=== PATIENT | female | born 1945 | race African-American/Black ===

== ENCOUNTER 2016-11-10 16:18 | Inpatient (IN) | payer MEDICARE, OTHER ==
--- NOTE | 2016-11-10 16:43 | ER Document Report ---
ED Medical Screen (RME) - General Stated Complaint: SHORTNESS OF BREATH Mode of Arrival: Wheelchair Information source: Patient Notes: Patient complains of shortness of breath that started this morning. Patient denies any chest pain. Patient reports nausea, but denies any vomiting. hx: thyroid, HTN, OA I have greeted and performed a rapid initial assessment of this patient. A comprehensive ED assessment and evaluation of the patient, analysis of test results and completion of the medical decision making process will be conducted by additional ED providers. TRAVEL OUTSIDE OF THE [place] IN LAST 30 DAYS: No - Related Data Allergies/Adverse Reactions: Sulfa (Sulfonamide Antibiotics) Allergy (Verified 11/10/16 16:38) Hives Past Medical History - Past Medical History Cardiac Medical History: Reports: Hx Hypercholesterolemia, Hx Hypertension Denies: Hx Coronary Artery Disease, Hx Heart Attack Pulmonary Medical History: Denies: Hx Asthma, Hx Bronchitis, Hx COPD, Hx Pneumonia Neurological Medical History: Denies: Hx Cerebrovascular Accident, Hx Seizures Endocrine Medical History: Reports: Hx Hypothyroidism GI Medical History: Reports: Hx Gastroesophageal Reflux Disease, Hx Ulcer - YEARS AGO STOMACH. Denies: Hx Hepatitis, Hx Hiatal Hernia Musculoskeltal Medical History: Denies Hx Arthritis Infectious Medical History: Denies: Hx Hepatitis Past Surgical History: Reports: Hx Breast Surgery - cyst on R breast removed, Hx Hysterectomy, Hx Mastectomy - RIGHT BREAST 2014, AVOID RIGHT ARM, Hx Orthopedic Surgery - carpel tunnel, rotator cuff repair R side, Hx Thyroid Surgery - removal. Denies: Hx Open Heart Surgery, Hx Pacemaker - Immunizations Hx Diphtheria, Pertussis, Tetanus Vaccination: - UNSURE Physical Exam - Cardiovascular Rhythm: Tachycardia Heart sounds: S1 appreciated, S2 appreciated
[2016-11-10 17:32] LABS: ABSOLUTE LYMPHOCYTES (AUTO) 1.1 10^3/uL (0.5-4.7); ABSOLUTE MONOCYTES (AUTO) 0.7 10^3/uL (0.1-1.4); ABSOLUTE NEUT (AUTO) 7.5 10^3/uL (1.7-8.2); BASOPHILS % (AUTO) 0.3 % (0-2); EOSINOPHILS % (AUTO) 0.2 % (0-6); HEMATOCRIT 35.2 % (36.0-47.0); HEMOGLOBIN 11.8 g/dL (12.0-15.5); HGB HCT DIFFERENCE 0.2; LYMPHOCYTES % (AUTO) 11.5 % (13-45); MEAN CORPUSCULAR HEMOGLOBIN 29.2 pg (27.0-33.4); MEAN CORPUSCULAR HGB CONC 33.5 g/dL (32.0-36.0); MEAN CORPUSCULAR VOLUME 87 fl (80-97); MONOCYTES % (AUTO) 7.8 % (3-13); RED BLOOD COUNT 4.04 10^6/uL (3.72-5.28); RED CELL DISTRIBUTION WIDTH 15.4 % (11.5-14.0); SEGMENTED NEUTROPHILS % (AUTO) 80.2 % (42-78); WHITE BLOOD COUNT 9.4 10^3/uL (4.0-10.5)
[2016-11-10 17:50] LABS: ALANINE AMINOTRANSFERASE 26 U/L (9-52); ALBUMIN 4.1 g/dL (3.5-5.0); ALKALINE PHOSPHATASE 111 U/L (38-126); ANION GAP 11 (5-19); ASPARTATE AMINO TRANSFERASE 20 U/L (14-36); BILIRUBIN,TOTAL 0.8 mg/dL (0.2-1.3); BLOOD UREA NITROGEN 12 mg/dL (7-20); CALCIUM 9.5 mg/dL (8.4-10.2); CARBON DIOXIDE 26 mmol/L (22-30); CHLORIDE 104 mmol/L (98-107); CREATINE KINASE 172 U/L (30-135); CREATININE RESULT 0.81 mg/dL (0.52-1.25); GLUCOSE 112 mg/dL (75-110); MAGNESIUM 1.8 mg/dL (1.6-2.3); POTASSIUM 3.8 mmol/L (3.6-5.0); SODIUM 140.5 mmol/L (137-145); TOTAL PROTEIN 7.4 g/dL (6.3-8.2)
[2016-11-10 18:01] LABS: CREATINE KINASE MB 1.75 ng/mL (<4.55)
[2016-11-10 18:03] LABS: TROPONIN I 0.142 ng/mL
--- NOTE | 2016-11-10 18:20 | ER Document Report ---
ED General - General Chief Complaint: Shortness Of Breath Stated Complaint: SHORTNESS OF BREATH Mode of Arrival: Wheelchair Information source: Patient Notes: 71-year-old female history of breast cancer presents with complaints of sudden shortness of breath that started this morning. Patient notes she cannot take a few steps without being short of breath, last had chemotherapy 2 years ago Patient denies any history of pulmonary emboli TRAVEL OUTSIDE OF THE [place] IN LAST 30 DAYS: No - HPI Onset: This morning Onset/Duration: Sudden Quality of pain: Achy Severity: Moderate Pain Level: 1 Associated symptoms: Shortness of breath Exacerbated by: Walking Relieved by: Denies Similar symptoms previously: No Recently seen / treated by doctor: No - Related Data Allergies/Adverse Reactions: Sulfa (Sulfonamide Antibiotics) Allergy (Verified 11/10/16 16:38) Hives Past Medical History - General Information source: Patient - Social History Smoking Status: Former Smoker Cigarette use (# per day): No Chew tobacco use (# tins/day): No Smoking Education Provided: No Frequency of alcohol use: None Drug Abuse: None Family History: Reviewed & Not Pertinent Patient has suicidal ideation: No Patient has homicidal ideation: No - Past Medical History Cardiac Medical History: Reports: Hx Hypercholesterolemia, Hx Hypertension Denies: Hx Coronary Artery Disease, Hx Heart Attack Pulmonary Medical History: Denies: Hx Asthma, Hx Bronchitis, Hx COPD, Hx Pneumonia Neurological Medical History: Denies: Hx Cerebrovascular Accident, Hx Seizures Endocrine Medical History: Reports: Hx Hypothyroidism Renal/ Medical History: Denies: Hx Peritoneal Dialysis GI Medical History: Reports: Hx Gastroesophageal Reflux Disease, Hx Ulcer - YEARS AGO STOMACH. Denies: Hx Hepatitis, Hx Hiatal Hernia Musculoskeltal Medical History: Reports Hx Arthritis Infectious Medical History: Denies: Hx Hepatitis Past Surgical History: Reports: Hx Breast Surgery - cyst on R breast removed, Hx Hysterectomy, Hx Mastectomy - RIGHT BREAST 2014, AVOID RIGHT ARM, Hx Orthopedic Surgery - carpel tunnel, rotator cuff repair R side, Hx Thyroid Surgery - removal. Denies: Hx Open Heart Surgery, Hx Pacemaker - Immunizations Hx Diphtheria, Pertussis, Tetanus Vaccination: - UNSURE Review of Systems - Review of Systems Notes: REVIEW OF SYSTEMS: CONSTITUTIONAL : Denies fever, chills, or sweats. Denies recent illness. EENT: Denies eye, ear, throat, or mouth pain or symptoms. Denies nasal or sinus congestion or discharge. Denies throat, tongue, or mouth swelling or difficulty swallowing. CARDIOVASCULAR: Denies chest pain. Denies palpitations or racing or irregular heart beat. Denies ankle edema. RESPIRATORY: shortness breath difficult to breathing GASTROINTESTINAL: Denies abdominal pain or distention. Denies nausea, vomiting , or diarrhea. Denies blood in vomitus, stools, or per rectum. Denies black, tarry stools. Denies constipation. GENITOURINARY: Denies difficulty urinating, painful urination, burning, frequency, blood in urine, or discharge. FEMALE GENITOURINARY: Denies vaginal bleeding, heavy or abnormal periods, irregular periods. Denies vaginal discharge or odor. MUSCULOSKELETAL: Denies back or neck pain or stiffness. Denies joint pain or swelling. SKIN: Denies rash, lesions or sores. HEMATOLOGIC : Denies easy bruising or bleeding. LYMPHATIC: Denies swollen, enlarged glands. NEUROLOGICAL: Denies confusion or altered mental status. Denies passing out or loss of consciousness. Denies dizziness or lightheadedness. Denies headache. Denies weakness or paralysis or loss of use of either side. Denies problems with gait or speech. Denies sensory loss, numbness, or tingling. Denies seizures. PSYCHIATRIC: Denies anxiety or stress. Denies depression, suicidal ideation, or homicidal ideation. ALL OTHER SYSTEMS REVIEWED AND NEGATIVE. Dictation was performed using [employer] recognition software PHYSICAL EXAMINATION: GENERAL: Well-appearing, well-nourished and in no acute distress. HEAD: Atraumatic, normocephalic. EYES: Pupils equal round and reactive to light, extraocular movements intact, conjunctiva are normal. ENT: Nares patent, oropharynx clear without exudates. Moist mucous membranes. NECK: Normal range of motion, supple without lymphadenopathy LUNGS: Breath sounds clear to auscultation bilaterally and equal. No wheezes rales or rhonchi. HEART: Tachycardic ABDOMEN: Soft, nontender, nondistended abdomen. No guarding, no rebound. No masses appreciated. Female : deferred Musculoskeletal: Normal range of motion, no pitting or edema. No cyanosis. NEUROLOGICAL: Cranial nerves grossly intact. Normal speech, normal gait. Normal sensory, motor exams PSYCH: Normal mood, normal affect. SKIN: Warm, Dry, normal turgor, no rashes or lesions noted. Physical Exam - Vital signs Vitals: Temp Pulse Resp BP Pulse Ox 98.8 F 132 H 22 H 127/81 H 94 11/10/16 16:41 11/10/16 16:41 11/10/16 16:41 11/10/16 16:41 11/10/16 16:41 Course - Re-evaluation Re-evalutation: 11/10/16 18:20 Patient is noted to be tachycardic hypoxic, I have very high suspicion for pulmonary emboli. CTA is pending 11/10/16 21:19 Patient is positive for pulmonary emboli heparin protocol started 11/10/16 21:57 - Vital Signs Vital signs: Temp Pulse Resp BP Pulse Ox 99.5 F 132 H 24 H 154/129 H 94 11/10/16 21:00 11/10/16 16:41 11/10/16 21:20 11/10/16 21:20 11/10/16 21:20 - Laboratory Result Diagrams: 11/10/16 17:10 11/10/16 17:10 Laboratory results interpreted by me: 11/10/16 11/10/16 11/10/16 17:10 17:10 17:10 Hgb 11.8 L Hct 35.2 L RDW 15.4 H Seg Neutrophils % 80.2 H Lymphocytes % 11.5 L Glucose 112 H Creatine Kinase 172 H TSH 0.24 L Urine Protein Urine Blood Ur Leukocyte Esterase 11/10/16 18:00 Hgb Hct RDW Seg Neutrophils % Lymphocytes % Glucose Creatine Kinase TSH Urine Protein 100 H Urine Blood SMALL H Ur Leukocyte Esterase LARGE H Critical Care Note - Critical Care Note Total time excluding time spent on procedures (mins): 32 Comments: 32 minutes of critical care time spent in direct contact evaluating and reevaluating the patient, treating symptoms, reviewing labs and studies and speaking with family and consultants excluding any procedures Discharge - Discharge Clinical Impression: Shortness of breath, Tachycardia Pulmonary emboli Qualifiers: Pulmonary embolism type: other Chronicity: acute Acute cor pulmonale presence: without acute cor pulmonale Qualified Code(s): I26.99 - Other pulmonary embolism without acute cor pulmonale Condition: Serious Disposition: ADMITTED INPATIENT Admitting Provider: Hospitalist Unit Admitted: Telemetry
--- NOTE | 2016-11-10 18:30 | EKG REPORT ---
SEVERITY:- ABNORMAL ECG - SINUS TACHYCARDIA BORDERLINE R WAVE PROGRESSION, ANTERIOR LEADS BORDERLINE T ABNORMALITIES, DIFFUSE LEADS : Confirmed by: Meliza Elizabeth 10-Nov-2016 18:29:52
[2016-11-10 18:46] LABS: APPEARANCE,URINE SLIGHTLY-CLOUDY; BILIRUBIN,URINE NEGATIVE (NEGATIVE); GLUCOSE, URINE NEGATIVE (NEGATIVE); KETONES,URINE NEGATIVE (NEGATIVE); LEUKOCYTE ESTERASE,URINE LARGE (NEGATIVE); NITRITE,URINE NEGATIVE (NEGATIVE); PROTEIN,URINE 100 mg/dL (NEGATIVE); URINE SPECIFIC GRAVITY 1.011; UROBILINOGEN,URINE NEGATIVE mg/dL (<2.0)
[2016-11-10] MEDS ORDERED: HEPARIN SODIUM,PORCINE/D5W 250 ML IV PRN (21:17)
[2016-11-10] MEDS ORDERED: HEPARIN SOD (PORCINE) 1,000 UNIT/ML 10 ML VIAL IV ONE (21:17)
[2016-11-10] MEDS ORDERED: HEPARIN SOD (PORCINE) 1,000 UNIT/ML 10 ML VIAL IV PRN (21:17)
[2016-11-10] MEDS ORDERED: ACETAMINOPHEN 325 MG TABLET PO PRN (22:00)
[2016-11-10] MEDS ORDERED: IPRATROPIUM/ALBUTEROL 0.5-2.5 MG/3 ML AMPUL NEB PRN (22:00)
[2016-11-10] MEDS ORDERED: ONDANSETRON HCL INJ/PF 4 MG/2 ML SDV IV PRN (22:00)
[2016-11-10] MEDS ORDERED: MAGNESIUM HYDROXIDE SUSP 30 ML UDCUP PO PRN (22:00)
[2016-11-10] MEDS ORDERED: NORMAL SALINE 1000 ML 1,000 ML IV ONE (22:06)
[2016-11-10 22:24] LABS: PROTHROMBIN TIME 13.9 SEC (11.4-15.4)
[2016-11-10] MEDS ORDERED: BESIFLOXACIN HCL 0.6% OPH SUSP 5 ML BOTTLE OP PRN (23:31)
[2016-11-10] MEDS ORDERED: (PENDING PHARMACY ID) (Difluprednate [Durezol] 1 DROP) OP PRN (23:31)
[2016-11-10] MEDS ORDERED: (PENDING PHARMACY ID) (Nepafenac [Ilevro] 1 DROP) OP PRN (23:31)
--- NOTE | 2016-11-11 04:51 | PDOC H&P ---
History of Present Illness Admission Date/PCP: 11/10/16 22:01 Patient complains of: Shortness of breath a nonproductive cough History of Present Illness: BEULAH MARTINS is a 71 year old female with a past medical history of breast cancer status post right-sided total mastectomy with lymph node dissection and chemotherapy completed 2 years ago who had been her usual state of health until approximately 12 hours prior to presentation awakening with exceptional fatigue shortness of breath a nonproductive cough no chest pain. She denies prolonged sedentary state, lower extremity injury or previous episode Evaluation emergency room is notable for tachypnea and tachycardia and a CTA reveals pulmonary emboli she started on IV heparin and referred to the hospitalist for admission. She initiation of recent medication that she cannot recall the name. Past Medical History Cardiac Medical History: Reports: Hyperlipidema, Hypertension Denies: Coronary Artery Disease, Myocardial Infarction Pulmonary Medical History: Denies: Asthma, Bronchitis, Chronic Obstructive Pulmonary Disease (COPD), Pneumonia Neurological Medical History: Denies: Seizures Endocrine Medical History: Reports: Hypothyroidism Malignancy Medical History: Reports: Breast Cancer GI Medical History: Reports: Gastroesophageal Reflux Disease Denies: Hepatitis, Hiatal Hernia Musculoskeltal Medical History: Reports: Arthritis Psychiatric Medical History: Denies: Depression Hematology: Denies: Anemia, Sickle Cell Disease Past Surgical History Past Surgical History: Reports: Hysterectomy, Mastectomy - RIGHT BREAST 2014, AVOID RIGHT ARM, Orthopedic Surgery - carpel tunnel, rotator cuff repair R side Denies: Amputation, Pacemaker Social History Information Source: Patient Lives with: Family Smoking Status: Former Smoker Frequency of Alcohol Use: None Hx Recreational Drug Use: No Hx Prescription Drug Abuse: No - Advance Directive Resuscitation Status: Full Code Family History Family History: Other - DVT and brother and mother Parental Family History Reviewed: Yes Children Family History Reviewed: Yes Sibling(s) Family History Reviewed.: Yes Medication/Allergy Home Medications: Amlodipine Besylate 1 tab PO QHS 10/01/13 Levothyroxine Sodium [Synthroid] 75 mcg PO DAILY 10/01/13 Omeprazole 1 tab PO BID 10/01/13 Potassium Chloride 1 tab PO DAILY 10/01/13 Atorvastatin Calcium [Lipitor 20 mg Tablet] 1 tab PO QHS 10/08/13 Duloxetine HCl 1 tab PO DAILY 04/18/16 Letrozole 1 tab PO DAILY 04/18/16 Amitriptyline HCl 1 tab PO QHS 11/10/16 Diclofenac Sodium [Voltaren] 1 tab PO DAILY 11/10/16 Gabapentin [Gabapentin] 3 tab PO TID 11/10/16 Allergies/Adverse Reactions: Sulfa (Sulfonamide Antibiotics) Allergy (Verified 11/10/16 16:38) Hives Review of Systems Constitutional: PRESENT: fatigue. ABSENT: chills, fever(s), headache(s), weight gain, weight loss Eyes: ABSENT: visual disturbances Ears: ABSENT: hearing changes Cardiovascular: ABSENT: chest pain, dyspnea on exertion, edema, orthropnea, palpitations Respiratory: ABSENT: cough, hemoptysis Gastrointestinal: ABSENT: abdominal pain, constipation, diarrhea, hematemesis, hematochezia, nausea, vomiting Genitourinary: ABSENT: dysuria, hematuria Musculoskeletal: ABSENT: joint swelling Integumentary: ABSENT: rash, wounds Neurological: ABSENT: abnormal gait, abnormal speech, confusion, dizziness, focal weakness, syncope Psychiatric: ABSENT: anxiety, depression, homidical ideation, suicidal ideation Endocrine: ABSENT: cold intolerance, heat intolerance, polydipsia, polyuria Hematologic/Lymphatic: ABSENT: easy bleeding, easy bruising Physical Exam Vital Signs: Temp Pulse Resp BP Pulse Ox 98.3 F 110 H 18 143/79 H 98 11/11/16 02:03 11/11/16 02:03 11/11/16 02:03 11/11/16 02:03 11/11/16 03:03 Intake & Output 11/09/16 11/10/16 11/11/16 11:59 11:59 11:59 Weight 98.5 kg General appearance: PRESENT: cooperative, mild distress, well-developed, well- nourished Head exam: PRESENT: atraumatic, normocephalic Eye exam: PRESENT: conjunctiva pink, EOMI, PERRLA. ABSENT: scleral icterus Ear exam: PRESENT: normal external ear exam Mouth exam: PRESENT: moist, tongue midline Neck exam: ABSENT: carotid bruit, JVD, lymphadenopathy, thyromegaly Respiratory exam: PRESENT: clear to auscultation ignacio, symmetrical, tachypnea. ABSENT: rales, rhonchi, wheezes Cardiovascular exam: PRESENT: RRR. ABSENT: diastolic murmur, rubs, systolic murmur Pulses: PRESENT: normal dorsalis pedis pul Vascular exam: PRESENT: normal capillary refill GI/Abdominal exam: PRESENT: normal bowel sounds, soft. ABSENT: distended, guarding, mass, organolmegaly, rebound, tenderness Rectal exam: PRESENT: deferred Extremities exam: PRESENT: full ROM. ABSENT: calf tenderness, clubbing, pedal edema Neurological exam: PRESENT: alert, awake, oriented to person, oriented to place , oriented to time, oriented to situation, CN II-XII grossly intact. ABSENT: motor sensory deficit Psychiatric exam: PRESENT: appropriate affect, normal mood. ABSENT: homicidal ideation, suicidal ideation Skin exam: PRESENT: dry, intact, warm. ABSENT: cyanosis, rash Results Impressions: Chest X-Ray 11/10/16 16:42 IMPRESSION: No acute cardiopulmonary disease, findings as above. Stable appearance of the chest. Chest/Abdomen CTA 11/10/16 18:04 IMPRESSION: 1. Positive for pulmonary emboli. 2. Scar versus mild subpleural infarct in the right lower lobe. Assessment & Plan - Diagnosis (1) Pulmonary emboli Qualifiers: Pulmonary embolism type: other Chronicity: acute Acute cor pulmonale presence: without acute cor pulmonale Qualified Code(s): I26.99 - Other pulmonary embolism without acute cor pulmonale Is this a current diagnosis for this admission?: YesPlan: She is hemodynamically stable and admitted to a monitored bed with IV heparin symptomatic management. I am concerned for a hypercoagulable state given strong family history of DVT and breast cancer as well as use of letrozole. I will obtain consultation with hematology oncology (2) Shortness of breath Is this a current diagnosis for this admission?: YesPlan: Secondary to #1 encourage incentive spirometry, and symptomatic management with albuterol Atrovent (3) Tachycardia Is this a current diagnosis for this admission?: YesPlan: Secondary to #1 evaluation for the consideration of rate limiting meds if persistent - Time Time Spent: 30 to 50 Minutes
[2016-11-11 04:55] LABS: ABSOLUTE BASOPHILS # (AUTO) 0.1 10^3/uL (0.0-0.2); ABSOLUTE EOSINOPHILS # (AUTO) 0.1 10^3/uL (0.0-0.6); ABSOLUTE LYMPHOCYTES (AUTO) 1.8 10^3/uL (0.5-4.7); ABSOLUTE MONOCYTES (AUTO) 0.8 10^3/uL (0.1-1.4); ABSOLUTE NEUT (AUTO) 7.4 10^3/uL (1.7-8.2); BASOPHILS % (AUTO) 1.3 % (0-2); EOSINOPHILS % (AUTO) 0.9 % (0-6); HEMATOCRIT 32.9 % (36.0-47.0); HEMOGLOBIN 11.3 g/dL (12.0-15.5); LYMPHOCYTES % (AUTO) 17.8 % (13-45); MEAN CORPUSCULAR HEMOGLOBIN 29.8 pg (27.0-33.4); MEAN CORPUSCULAR HGB CONC 34.3 g/dL (32.0-36.0); MEAN CORPUSCULAR VOLUME 87 fl (80-97); MONOCYTES % (AUTO) 7.6 % (3-13); RED BLOOD COUNT 3.79 10^6/uL (3.72-5.28); RED CELL DISTRIBUTION WIDTH 15.4 % (11.5-14.0); SEGMENTED NEUTROPHILS % (AUTO) 72.4 % (42-78); WHITE BLOOD COUNT 10.2 10^3/uL (4.0-10.5)
[2016-11-11 05:10] LABS: ANION GAP 10 (5-19); BLOOD UREA NITROGEN 11 mg/dL (7-20); CALCIUM 9.3 mg/dL (8.4-10.2); CARBON DIOXIDE 26 mmol/L (22-30); CHLORIDE 105 mmol/L (98-107); CREATINE KINASE 182 U/L (30-135); GLUCOSE 124 mg/dL (75-110); POTASSIUM 3.4 mmol/L (3.6-5.0); SODIUM 140.8 mmol/L (137-145)
[2016-11-11 05:21] LABS: CREATINE KINASE MB 1.56 ng/mL (<4.55); TROPONIN I 0.075 ng/mL
[2016-11-11] MEDS ORDERED: HEPARIN SODIUM,PORCINE/D5W 250 ML IV PRN (08:04)
[2016-11-11 08:19] LABS: PROTHROMBIN TIME 14.7 SEC (11.4-15.4)
[2016-11-11] MEDS: LANSOPRAZOLE 15 MG TAB.RAP.DR PO SCH ×2 (10:12→18:19)
[2016-11-11] MEDS: DULOXETINE HCL 30 MG CAPSULE.DR PO SCH (10:12)
[2016-11-11] MEDS: LEVOTHYROXINE SODIUM 0.05 MG TABLET PO SCH (10:12)
[2016-11-11] MEDS: DOCUSATE SODIUM 100 MG CAPSULE PO SCH ×2 (10:12→18:19)
[2016-11-11] MEDS ORDERED: RIVAROXABAN 15 MG TABLET PO ONE (10:30)
--- NOTE | 2016-11-11 11:03 | PDOC PROGRESS REPORT ---
Subjective Progress Note for:: 11/11/16 Subjective:: Patient reports some mild shortness of breath. Physical Exam Vital Signs: Temp Pulse Resp BP Pulse Ox 97.5 F 105 H 18 142/82 H 96 11/11/16 04:29 11/11/16 07:00 11/11/16 04:29 11/11/16 04:29 11/11/16 04:29 Intake & Output 11/10/16 11/11/16 11/12/16 06:59 06:59 06:59 Intake Total 550 Balance 550 Weight 98.5 kg General appearance: PRESENT: no acute distress Eye exam: PRESENT: conjunctiva pink. ABSENT: scleral icterus Mouth exam: PRESENT: moist, tongue midline Neck exam: ABSENT: JVD Respiratory exam: PRESENT: clear to auscultation ignacio. ABSENT: rales, rhonchi, wheezes Cardiovascular exam: PRESENT: tachycardia. ABSENT: diastolic murmur, rubs, systolic murmur GI/Abdominal exam: PRESENT: normal bowel sounds, soft. ABSENT: distended, guarding, mass, organolmegaly, rebound, tenderness Extremities exam: ABSENT: calf tenderness, clubbing, pedal edema Neurological exam: PRESENT: alert, awake, oriented to person, oriented to place , oriented to time, oriented to situation, CN II-XII grossly intact. ABSENT: motor sensory deficit Skin exam: PRESENT: dry, intact, warm. ABSENT: cyanosis, rash Results Laboratory Results: 11/11/16 04:14 11/11/16 04:14 11/11/16 11/11/16 04:14 04:14 WBC 10.2 RBC 3.79 Hgb 11.3 L Hct 32.9 L MCV 87 MCH 29.8 MCHC 34.3 RDW 15.4 H Plt Count 171 Seg Neutrophils % 72.4 Lymphocytes % 17.8 Monocytes % 7.6 Eosinophils % 0.9 Basophils % 1.3 Absolute Neutrophils 7.4 Absolute Lymphocytes 1.8 Absolute Monocytes 0.8 Absolute Eosinophils 0.1 Absolute Basophils 0.1 Sodium 140.8 Potassium 3.4 L Chloride 105 Carbon Dioxide 26 Anion Gap 10 BUN 11 Creatinine 0.80 Est GFR ( Amer) > 60 Est GFR (Non-Af Amer) > 60 Glucose 124 H Calcium 9.3 11/11/16 11/11/16 11/11/16 04:14 04:14 10:12 Creatine Kinase 182 H 188 H CK-MB (CK-2) 1.56 Troponin I 0.075 Impressions: Chest X-Ray 11/10/16 16:42 IMPRESSION: No acute cardiopulmonary disease, findings as above. Stable appearance of the chest. Chest/Abdomen CTA 11/10/16 18:04 IMPRESSION: 1. Positive for pulmonary emboli. 2. Scar versus mild subpleural infarct in the right lower lobe. Assessment & Plan - Diagnosis (1) Pulmonary emboli Qualifiers: Pulmonary embolism type: other Chronicity: acute Acute cor pulmonale presence: without acute cor pulmonale Qualified Code(s): I26.99 - Other pulmonary embolism without acute cor pulmonale Is this a current diagnosis for this admission?: YesPlan: Patient currently is on heparin drip. We'll start her on Xarelto and then DC the heparin drip. Patient has a history of breast cancer which could be the cause for her pulmonary emboli however we'll check a lower 20 Doppler to make certain she does not have a DVT as the cause. (2) Tachycardia Is this a current diagnosis for this admission?: YesPlan: Patient is tachycardic most likely secondary to her pulmonary embolism. (3) Hypertension Is this a current diagnosis for this admission?: YesPlan: Continue with the Norvasc. (4) Hyperlipidemia Is this a current diagnosis for this admission?: YesPlan: Continue Lipitor (5) Hypothyroidism Is this a current diagnosis for this admission?: YesPlan: Continue with Synthroid. (7) Breast cancer Is this a current diagnosis for this admission?: Yes - Time Time Spent with patient: 25-34 minutes - Inpatient Certification Medical Necessity: Need Close Monitoring Due to Risk of Patient Decompensation - Plan Summary Plan Summary: If the patient does well she can hopefully be discharged home tomorrow.
[2016-11-11 11:07] LABS: CREATINE KINASE MB 1.42 ng/mL (<4.55); TROPONIN I 0.049 ng/mL
[2016-11-11] MEDS: RIVAROXABAN 15 MG TABLET PO SCH (18:19)
[2016-11-11] MEDS ORDERED: ATORVASTATIN CALCIUM 20 MG TABLET PO SCH (22:00)
[2016-11-11] MEDS ORDERED: AMLODIPINE BESYLATE 5 MG TABLET PO SCH (22:00)
[2016-11-12 06:08] LABS: HEMATOCRIT 32.4 % (36.0-47.0); HGB HCT DIFFERENCE 0.6; MEAN CORPUSCULAR HEMOGLOBIN 29.6 pg (27.0-33.4); MEAN CORPUSCULAR HGB CONC 34.1 g/dL (32.0-36.0); MEAN CORPUSCULAR VOLUME 87 fl (80-97); RED BLOOD COUNT 3.72 10^6/uL (3.72-5.28); RED CELL DISTRIBUTION WIDTH 15.4 % (11.5-14.0); WHITE BLOOD COUNT 7.5 10^3/uL (4.0-10.5)
[2016-11-12] MEDS ORDERED: BESIFLOXACIN HCL 0.6% OPH SUSP 5 ML BOTTLE OP PRN (07:19)
[2016-11-12 09:15] VITALS: BP 130/73
[2016-11-12] MEDS: DOCUSATE SODIUM 100 MG CAPSULE PO SCH (11:02)
[2016-11-12] MEDS: DULOXETINE HCL 30 MG CAPSULE.DR PO SCH (11:02)
[2016-11-12] MEDS: LEVOTHYROXINE SODIUM 0.05 MG TABLET PO SCH (11:03)
[2016-11-12] MEDS: RIVAROXABAN 15 MG TABLET PO SCH (11:03)
[2016-11-12] MEDS: LANSOPRAZOLE 15 MG TAB.RAP.DR PO SCH (11:03)
--- NOTE | 2016-11-12 13:41 | PDOC CONSULTATION ---
Consultation Consult Date: 11/12/16 Consult reason:: Breast Cancer and PE History of Present Illness Admission Date/PCP: 11/10/16 22:01 History of Present Illness: BEULAH MARTINS is a 71 year old female with a past medical history of Stage II Right Breast cancer, poorly differentiated status post right-sided total mastectomy with lymph node dissection and adjuvant ACT completed 04/2014 followed by XRT and now [facility] who had been her usual state of health until approximately 12 hours prior to presentation awakening with exceptional fatigue shortness of breath a nonproductive cough but no chest pain. She denies prolonged sedentary state, lower extremity injury or previous episode Evaluation emergency room is notable for tachypnea and tachycardia and a CTA reveals pulmonary emboli she was started on IV heparin then changed to Xarelto whoand referred to the hospitalist for admission. She is scheduled for colonoscopy on Saturday due to recent iron deficiency anemia. She reports that her brother admits to having a PE as well but denies any immobilization or other risks. Her daughter reports that she hasn't been very active however. Past Medical History Cardiac Medical History: Reports: Hyperlipidema, Hypertension Denies: Coronary Artery Disease, Myocardial Infarction Pulmonary Medical History: Denies: Asthma, Bronchitis, Chronic Obstructive Pulmonary Disease (COPD), Pneumonia Neurological Medical History: Denies: Seizures Endocrine Medical History: Reports: Hypothyroidism Malignancy Medical History: Reports: Breast Cancer GI Medical History: Reports: Gastroesophageal Reflux Disease Denies: Hepatitis, Hiatal Hernia Musculoskeltal Medical History: Reports: Arthritis Psychiatric Medical History: Denies: Depression Hematology: Denies: Anemia, Sickle Cell Disease Past Surgical History Past Surgical History: Reports: Hysterectomy, Mastectomy - RIGHT BREAST 2013, AVOID RIGHT ARM, Orthopedic Surgery - carpel tunnel, rotator cuff repair R side Denies: Amputation, Pacemaker Social History Lives with: Family Smoking Status: Former Smoker Frequency of Alcohol Use: None Hx Recreational Drug Use: No Drugs: None Hx Prescription Drug Abuse: No - Advance Directive Resuscitation Status: Full Code Family History Family History: Other - DVT and brother and mother Parental Family History Reviewed: Yes Children Family History Reviewed: Yes Sibling(s) Family History Reviewed.: Yes Medication/Allergy Home Medications: Amitriptyline HCl [Elavil 25 mg Tablet] 100 mg PO QHS 11/11/16 Amlodipine Besylate [Norvasc 5 mg Tablet] 5 mg PO QHS 11/11/16 Atorvastatin Calcium [Lipitor 20 mg Tablet] 20 mg PO QHS 11/11/16 Cholecalciferol (Vitamin D3) [Vitamin D3 5000 unit Capsule] 5,000 unit PO DAILY 11/11/16 Diclofenac Sodium [Voltaren 25 mg Tablet.dr] 25 mg PO DAILY 11/11/16 Duloxetine HCl [Cymbalta] 60 mg PO DAILY 11/11/16 Ergocalciferol (Vitamin D2) [Drisdol 50,000 unit (1.25MG) Capsule] 50,000 unit PO HILLS@1000 11/11/16 Gabapentin [Neurontin 300 mg Capsule] 300 mg PO Q8 11/11/16 Letrozole [Femara 2.5 mg Tablet] 2.5 mg PO DAILY 11/11/16 Levothyroxine Sodium [Synthroid 0.075 mg Tablet] 0.075 mg PO DAILY 11/11/16 Omeprazole 20 mg PO BIDACBSP PRN 11/11/16 Potassium Chloride [Klor-Con Sprinkle] 10 meq PO DAILY 11/11/16 Nepafenac [Ilevro] 1 drop OP ASDIR PRN 11/12/16 Rivaroxaban [Xarelto 15 mg Tablet] 15 mg PO BIDBS #40 tablet 11/12/16 Allergies/Adverse Reactions: Sulfa (Sulfonamide Antibiotics) Allergy (Verified 11/10/16 16:38) Hives Review of Systems All systems: reviewed and no additional remarkable complaints except as stated - Having difficulty walking to the mailbox for the last 2 weeks due to dyspnea with exertion. Physical Exam Vital Signs: Temp Pulse Resp BP Pulse Ox 98.3 F 94 16 130/73 H 97 11/12/16 11:25 11/12/16 11:25 11/12/16 11:25 11/12/16 11:25 11/12/16 11:25 Intake & Output 11/11/16 11/12/16 11/13/16 06:59 06:59 06:59 Intake Total 550 1473 Output Total 900 Balance 550 573 Weight 98.5 kg 98.5 kg General appearance: PRESENT: no acute distress Head exam: PRESENT: atraumatic, normocephalic Eye exam: PRESENT: EOMI, PERRLA Ear exam: PRESENT: normal external ear exam Mouth exam: PRESENT: moist, tongue midline Respiratory exam: PRESENT: unlabored, wheezes Cardiovascular exam: PRESENT: RRR GI/Abdominal exam: PRESENT: normal bowel sounds, soft Rectal exam: PRESENT: deferred Neurological exam: PRESENT: alert, awake, oriented to person, oriented to place , oriented to time, oriented to situation, CN II-XII grossly intact Results Laboratory Results: 11/12/16 05:58 11/11/16 04:14 11/12/16 05:58 WBC 7.5 RBC 3.72 Hgb 11.0 L Hct 32.4 L MCV 87 MCH 29.6 MCHC 34.1 RDW 15.4 H Plt Count 182 11/11/16 11/11/16 11/11/16 04:14 04:14 10:12 Creatine Kinase 182 H 188 H CK-MB (CK-2) 1.56 Troponin I 0.075 11/11/16 10:12 Creatine Kinase CK-MB (CK-2) 1.42 Troponin I 0.049 Impressions: Chest X-Ray 11/10/16 16:42 IMPRESSION: No acute cardiopulmonary disease, findings as above. Stable appearance of the chest. Chest/Abdomen CTA 11/10/16 18:04 IMPRESSION: 1. Positive for pulmonary emboli. 2. Scar versus mild subpleural infarct in the right lower lobe. Assessment & Plan - Diagnosis (1) Iron (Fe) deficiency anemia Qualifiers: Iron deficiency anemia type: unspecified iron deficiency Qualified Code(s): D50.9 - Iron deficiency anemia, unspecified Is this a current diagnosis for this admission?: YesPlan: Once recovered from her PE, she will need GI eval (2) Breast cancer Is this a current diagnosis for this admission?: YesPlan: Check her CA27.29 and evaluate for signs for recurrence (3) Pulmonary emboli Qualifiers: Pulmonary embolism type: other Chronicity: acute Acute cor pulmonale presence: without acute cor pulmonale Qualified Code(s): I26.99 - Other pulmonary embolism without acute cor pulmonale Is this a current diagnosis for this admission?: YesPlan: Agree with Jami and will proceed with further eval as an outpatient. - Time Time Spent: 50 to 70 Minutes Critical Time spent with patient: 25-34 minutes Medications reviewed and adjusted accordingly: Yes Anticipated discharge: Home Within: within 24 hours
--- NOTE | 2016-11-12 14:34 | PDOC DISCHARGE SUMMARY ---
General - Admit/Disc Date/PCP Admission Date/Primary Care Provider: 11/10/16 22:01 Discharge Date: 11/12/16 - Discharge Diagnosis (1) Pulmonary emboli Is this a current diagnosis for this admission?: YesSummary: Patient has a DVT in the right thigh which is the source for pulmonary embolism. She is to take Xarelto. (2) Tachycardia Is this a current diagnosis for this admission?: YesSummary: Most likely secondary to her pulmonary embolism which overall is improving. (3) Hypertension Is this a current diagnosis for this admission?: Yes (4) Hyperlipidemia Is this a current diagnosis for this admission?: Yes (5) Hypothyroidism Is this a current diagnosis for this admission?: Yes (6) Gastroesophageal reflux disease Is this a current diagnosis for this admission?: Yes (7) Breast cancer Is this a current diagnosis for this admission?: YesSummary: Followed by Dr. Danitza Mcginnis - Additional Information Resuscitation Status: Full Code Discharge Diet: Regular Discharge Activity: Activity As Tolerated, Balance Activity w/Rest Home Medications: Amitriptyline HCl [Elavil 25 mg Tablet] 100 mg PO QHS 11/11/16 Amlodipine Besylate [Norvasc 5 mg Tablet] 5 mg PO QHS 11/11/16 Atorvastatin Calcium [Lipitor 20 mg Tablet] 20 mg PO QHS 11/11/16 Cholecalciferol (Vitamin D3) [Vitamin D3 5000 unit Capsule] 5,000 unit PO DAILY 11/11/16 Diclofenac Sodium [Voltaren 25 mg Tablet.dr] 25 mg PO DAILY 11/11/16 Duloxetine HCl [Cymbalta] 60 mg PO DAILY 11/11/16 Ergocalciferol (Vitamin D2) [Drisdol 50,000 unit (1.25MG) Capsule] 50,000 unit PO HILLS@1000 11/11/16 Gabapentin [Neurontin 300 mg Capsule] 300 mg PO Q8 11/11/16 Letrozole [Femara 2.5 mg Tablet] 2.5 mg PO DAILY 11/11/16 Levothyroxine Sodium [Synthroid 0.075 mg Tablet] 0.075 mg PO DAILY 11/11/16 Omeprazole 20 mg PO BIDACBSP PRN 11/11/16 Potassium Chloride [Klor-Con Sprinkle] 10 meq PO DAILY 11/11/16 Nepafenac [Ilevro] 1 drop OP ASDIR PRN 11/12/16 Rivaroxaban [Xarelto 15 mg Tablet] 15 mg PO BIDBS #40 tablet 11/12/16 History of Present Illness History of Present Illness: BEULAH MARTINS is a 71 year old female is an equivocal her history shortness of breath and fatigue. Patient presented pressure was found to have tachycardia and underwent a CT angiogram which showed her to have bilateral pulmonary emboli. She is admitted for further workup. Hospital Course Hospital Course: 71 old female history of breast cancer presented with a 12 hour history shortness of breath and fatigue. Patient was found to have bilateral pulmonary emboli. Patient was started on heparin initially and switched over to Xarelto. The patient has tolerated this without difficulty. Patient had an ultrasound of the lower extremity shows her to have a right-sided DVT as the cause for her pulmonary embolism. The patient has been somewhat inactive which is most likely source for this. The patient the day of discharge was able to ambulate without any hypoxia and her tachycardia has essentially resolved and she is discharged home. Other medical problems have been unchanged during this hospitalization. Physical Exam Vital Signs: Temp Pulse Resp BP Pulse Ox 98.3 F 94 16 130/73 H 97 11/12/16 11:25 11/12/16 11:25 11/12/16 11:25 11/12/16 11:25 11/12/16 11:25 Intake & Output 11/11/16 11/12/16 11/13/16 06:59 06:59 06:59 Intake Total 550 1473 Output Total 900 Balance 550 573 Weight 98.5 kg 98.5 kg General appearance: PRESENT: no acute distress Eye exam: PRESENT: conjunctiva pink. ABSENT: scleral icterus Mouth exam: PRESENT: moist, tongue midline Neck exam: ABSENT: JVD Respiratory exam: PRESENT: clear to auscultation ignacio. ABSENT: rales, rhonchi, wheezes Cardiovascular exam: PRESENT: RRR. ABSENT: diastolic murmur, rubs, systolic murmur GI/Abdominal exam: PRESENT: normal bowel sounds, soft. ABSENT: distended, guarding, mass, organolmegaly, rebound, tenderness Extremities exam: ABSENT: calf tenderness, clubbing, pedal edema Neurological exam: PRESENT: alert, awake, oriented to person, oriented to place , oriented to time, oriented to situation Psychiatric exam: PRESENT: appropriate affect Skin exam: PRESENT: dry, intact, warm. ABSENT: cyanosis, rash Results Laboratory Results: 11/12/16 05:58 11/11/16 04:14 11/12/16 05:58 WBC 7.5 RBC 3.72 Hgb 11.0 L Hct 32.4 L MCV 87 MCH 29.6 MCHC 34.1 RDW 15.4 H Plt Count 182 11/11/16 11/11/16 11/11/16 04:14 04:14 10:12 Creatine Kinase 182 H 188 H CK-MB (CK-2) 1.56 Troponin I 0.075 11/11/16 10:12 Creatine Kinase CK-MB (CK-2) 1.42 Troponin I 0.049 Impressions: Chest X-Ray 11/10/16 16:42 IMPRESSION: No acute cardiopulmonary disease, findings as above. Stable appearance of the chest. Chest/Abdomen CTA 11/10/16 18:04 IMPRESSION: 1. Positive for pulmonary emboli. 2. Scar versus mild subpleural infarct in the right lower lobe. Qualifiers PATEINT BEING DISCHARGED WITH ANY OF THE FOLLOWING DIAGNOSIS?: No Plan Discharge Plan: Patient is discharged home and will follow up with her primary care doctor in 1 week. Time Spent: Less than 30 Minutes
--- NOTE | 2016-11-13 13:50 | XCELERA REPORT ---
[address] [address] Lower Extremity Venous Evaluation Name: BEULAH MARTINS Age: 71 yrs Gender: Female : 1945 Patient Status: Inpatient Patient Location: [id number] Study Date: 11/12/2016 10:38 AM Procedure: Color flow and duplex imaging bilaterally of the veins of the lower extremities as well as the Common Femoral veins. Reason For Study: destinee kang for dvt Ordering Physician: KIMBERLEE CRUZ Performed By: Mary Roy Right Sided Venous Evaluation Abnormal vessel filling limited compression and Colour flow in the proximal Femoral vein. Left Sided Venous Evaluation Normal vessel filling wall to wall, compression and augmentation as well as Colour flow down to the infrageniculate veins. Interpretation Summary DVT in the right Femoral vein in this patient being discharged with continuing treatment for Pulmonary embolism. : KIMBERLEE CRUZ > Bobby Buchanan
== END 2016-11-12 11:59 | disposition home or self-care (01) | DRG 176 ==
LOC: ER 16:18 → EH 22:01 → UNDOADMIN 22:05 → 5 11-11 01:57
PROVIDERS: ADMIT Internal Medicine; ATTEND Internal Medicine
DX: I26.99 Other pulmonary embolism without acute cor pulmonale (principal); I82.411 Acute embolism and thrombosis of right femoral vein; I10 Essential (primary) hypertension; M19.90 Unspecified osteoarthritis, unspecified site; E78.5 Hyperlipidemia, unspecified; E03.9 Hypothyroidism, unspecified; R00.0 Tachycardia, unspecified; D50.9 Iron deficiency anemia, unspecified; K21.9 Gastro-esophageal reflux disease without esophagitis; Z88.2 Allergy status to sulfonamides; Z87.891 Personal history of nicotine dependence; Z85.3 Personal history of malignant neoplasm of breast
CPT/HCPCS: 36415; 71020; 71275; 80048; 80053; 81001; 82550; 82553; 83735; 84443; 84484; 85025; 85027; 85610; 85730; 87040; 93005; 93010; 93970; 99291; J1644; J7030

== ENCOUNTER 2016-11-13 19:31 | Emergency (ER) | payer MEDICARE, OTHER ==
[2016-11-13 22:26] LABS: ABSOLUTE LYMPHOCYTES (AUTO) 0.9 10^3/uL (0.5-4.7); ABSOLUTE MONOCYTES (AUTO) 0.4 10^3/uL (0.1-1.4); ABSOLUTE NEUT (AUTO) 6.7 10^3/uL (1.7-8.2); BASOPHILS % (AUTO) 0.4 % (0-2); EOSINOPHILS % (AUTO) 0.4 % (0-6); HEMATOCRIT 31.6 % (36.0-47.0); HEMOGLOBIN 10.8 g/dL (12.0-15.5); HGB HCT DIFFERENCE 0.8; LYMPHOCYTES % (AUTO) 10.6 % (13-45); MEAN CORPUSCULAR HEMOGLOBIN 29.6 pg (27.0-33.4); MEAN CORPUSCULAR HGB CONC 34.4 g/dL (32.0-36.0); MEAN CORPUSCULAR VOLUME 86 fl (80-97); MONOCYTES % (AUTO) 5.3 % (3-13); RED BLOOD COUNT 3.66 10^6/uL (3.72-5.28); RED CELL DISTRIBUTION WIDTH 14.9 % (11.5-14.0); SEGMENTED NEUTROPHILS % (AUTO) 83.3 % (42-78); WHITE BLOOD COUNT 8.1 10^3/uL (4.0-10.5)
[2016-11-13 22:46] LABS: ALANINE AMINOTRANSFERASE 34 U/L (9-52); ALBUMIN 3.6 g/dL (3.5-5.0); ALKALINE PHOSPHATASE 99 U/L (38-126); ANION GAP 11 (5-19); ASPARTATE AMINO TRANSFERASE 23 U/L (14-36); BILIRUBIN,TOTAL 0.6 mg/dL (0.2-1.3); BLOOD UREA NITROGEN 12 mg/dL (7-20); CALCIUM 9.1 mg/dL (8.4-10.2); CARBON DIOXIDE 25 mmol/L (22-30); CHLORIDE 104 mmol/L (98-107); CREATINE KINASE 109 U/L (30-135); CREATININE RESULT 0.91 mg/dL (0.52-1.25); GLUCOSE 119 mg/dL (75-110); POTASSIUM 4.1 mmol/L (3.6-5.0); SODIUM 140.3 mmol/L (137-145); TOTAL PROTEIN 6.9 g/dL (6.3-8.2)
[2016-11-13 22:58] LABS: CREATINE KINASE MB 0.91 ng/mL (<4.55); TROPONIN I < 0.012 ng/mL
--- NOTE | 2016-11-13 23:18 | ER Document Report ---
ED General - General Chief Complaint: Altered Mental Status Stated Complaint: CHEST PAIN Notes: Patient is a 71-year-old female with recent diagnosis of multiple pulmonary emboli presents with multiple episodes of syncope at home today. Family states that ever since being discharged from the hospital patient has been more lethargic sleeping throughout most the day. However they state today that she "fell asleep and would not wake up" multiple times while in her recliner. They also noted that she's been acting unusually. As an example they state that she got out of the shower today and sat in her recliner while completely naked. They state that this is very unusual for her. Patient herself denies any complaints at this time. States that earlier today she had some intermittent right-sided stabbing chest pain which was the same pain she had prior to the diagnosis of her pulmonary embolus. Nothing improves or worsens her symptoms. She denies any pain at this time. She denies any focal weakness, numbness, headache or neck pain. No recent falls or head trauma. She and her family deny any history of similar symptoms in the past. She has not yet followed up with her primary care physician. TRAVEL OUTSIDE OF THE [place] IN LAST 30 DAYS: No - Related Data Allergies/Adverse Reactions: Sulfa (Sulfonamide Antibiotics) Allergy (Verified 11/10/16 16:38) Hives Past Medical History - General Information source: Patient, Relative - Social History Smoking Status: Former Smoker Frequency of alcohol use: None Drug Abuse: None Lives with: Family Family History: Reviewed & Not Pertinent, Other - DVT and brother and mother Patient has suicidal ideation: No Patient has homicidal ideation: No - Past Medical History Cardiac Medical History: Reports: Hx Hypercholesterolemia, Hx Hypertension Denies: Hx Coronary Artery Disease, Hx Heart Attack Pulmonary Medical History: Denies: Hx Asthma, Hx Bronchitis, Hx COPD, Hx Pneumonia Neurological Medical History: Denies: Hx Cerebrovascular Accident, Hx Seizures Endocrine Medical History: Reports: Hx Hypothyroidism Renal/ Medical History: Denies: Hx Peritoneal Dialysis Malignancy Medical History: Reports: Hx Breast Cancer GI Medical History: Reports: Hx Gastroesophageal Reflux Disease, Hx Ulcer - YEARS AGO STOMACH. Denies: Hx Hepatitis, Hx Hiatal Hernia Musculoskeltal Medical History: Reports Hx Arthritis Psychiatric Medical History: Denies: Hx Depression Infectious Medical History: Denies: Hx Hepatitis Past Surgical History: Reports: Hx Breast Surgery - cyst on R breast removed, Hx Hysterectomy, Hx Mastectomy - RIGHT BREAST 2014, AVOID RIGHT ARM, Hx Orthopedic Surgery - carpel tunnel, rotator cuff repair R side, Hx Thyroid Surgery - removal. Denies: Hx Open Heart Surgery, Hx Pacemaker - Immunizations Hx Diphtheria, Pertussis, Tetanus Vaccination: - UNSURE Review of Systems - Review of Systems Notes: Constitutional: Negative for fever. HENT: Negative for sore throat. Eyes: Negative for visual changes. Cardiovascular: Positive for chest pain. Positive for syncope Respiratory: Negative for shortness of breath. Gastrointestinal: Negative for abdominal pain, vomiting or diarrhea. Genitourinary: Negative for dysuria. Musculoskeletal: Negative for back pain. Skin: Negative for rash. Neurological: Negative for headaches, weakness or numbness. 10 point ROS negative except as marked above and in HPI. Physical Exam - Vital signs Vitals: Pulse Ox 100 11/13/16 19:38 Interpretation: Normal Notes: PHYSICAL EXAMINATION: GENERAL: Well-appearing, well-nourished and in no acute distress. HEAD: Atraumatic, normocephalic. EYES: Pupils equal round and reactive to light, extraocular movements intact, sclera anicteric, conjunctiva are normal. ENT: nares patent, oropharynx clear without exudates. Moist mucous membranes. NECK: Normal range of motion, supple without lymphadenopathy LUNGS: Breath sounds clear to auscultation bilaterally and equal. No wheezes rales or rhonchi. HEART: Regular rate and rhythm without murmurs ABDOMEN: Soft, nontender, normoactive bowel sounds. No guarding, no rebound. No masses appreciated. EXTREMITIES: Normal range of motion, no pitting or edema. No cyanosis. NEUROLOGICAL: Face symmetric. Tongue protrudes midline. Extraocular motions intact. Pupils are 2 mm and equally reactive. Normal speech, normal gait. 5 out of 5 strength in both the distal and proximal upper and lower extremities bilaterally. Sensation is grossly intact throughout. Finger to nose testing normal. Pronator drift normal. PSYCH: Normal mood, normal affect. SKIN: Warm, Dry, normal turgor, no rashes or lesions noted. Course - Re-evaluation Re-evalutation: 11/13/16 23:13 Patient presents with what appears to be repeated syncopal episodes with a recent diagnosis of acute pulmonary embolus currently on rivaroxaban. She did not have an echo done during her admission this is necessary at this point given her repeated episodes of syncope. She is otherwise well-appearing here, no focal neurologic deficits. Family denies any history consistent with TIA or stroke. She denies any pain at this time. Her troponin is likewise negative and was actually slightly elevated during her most recent admission. The family has declined admission here to this hospital stating they would prefer to go to [facility]. There is no medical indication for this transfer and [facility] does not currently have any beds. Family was notified of this and states they would prefer to take the patient directly by the personal vehicle. I have advised that I would prefer she stay here for admission but they state based on their prior experiences with inpatient admissions they would rather not be hospitalized here and do plan to take the patient directly from this hospital to [facility]. Patient is hemodynamically stable at this time, has no focal neurologic deficits, and has capacity. I have verbalized the risks with this plan including a patient could decompensate in route to the other hospital which family has verbalized an understanding of. Will discharge at this time per family request. - Vital Signs Vital signs: Temp Pulse Resp BP Pulse Ox 20 132/84 H 96 11/13/16 23:58 11/13/16 23:58 11/13/16 23:58 - Laboratory Result Diagrams: 11/13/16 22:08 11/13/16 22:08 Laboratory results interpreted by me: 11/13/16 11/13/16 22:08 22:08 RBC 3.66 L Hgb 10.8 L Hct 31.6 L RDW 14.9 H Seg Neutrophils % 83.3 H Lymphocytes % 10.6 L Glucose 119 H - Diagnostic Test Radiology reviewed: Image reviewed, Reports reviewed Radiology results interpreted by me: 11/13/16 23:16 Chest x-ray: Expanding right pleural effusion - EKG Interpretation by Me Additional EKG results interpreted by me: 11/14/16 03:52 Normal sinus rhythm. No ST elevations or depressions. Rate 92. Discharge - Discharge Clinical Impression: Syncope Qualifiers: Syncope type: unspecified Qualified Code(s): R55 - Syncope and collapse Pulmonary emboli Qualifiers: Pulmonary embolism type: other Chronicity: unspecified Acute cor pulmonale presence: without acute cor pulmonale Qualified Code(s): I26.99 - Other pulmonary embolism without acute cor pulmonale Condition: Stable Disposition: AGAINST MEDICAL ADVICE Additional Instructions: You have elected to go to another hospital rather than be admitted here. I recommend that you get a cardiac echocardiogram given your repeated episodes of passing out and your recent diagnosis of multiple pulmonary emboli. Continue taking all medications as prescribed. Referrals: KARLI ALVES MD [Primary Care Provider] - Follow up as needed
[2016-11-14 00:10] VITALS: BP 132/84
--- NOTE | 2016-11-15 08:12 | EKG REPORT ---
SEVERITY:- ABNORMAL ECG - SINUS TACHYCARDIA FIRST DEGREE AV BLOCK CONSIDER ANTERIOR INFARCT BORDERLINE T ABNORMALITIES, ANTERIOR LEADS : Confirmed by: Laure La MD 15-Nov-2016 08:11:50
== END 2016-11-14 00:10 | disposition left against medical advice (07) ==
LOC: ER 19:31
DX: R55 Syncope and collapse (principal); I26.99 Other pulmonary embolism without acute cor pulmonale; Z79.02 Long term (current) use of antithrombotics/antiplatelets; J90 Pleural effusion, not elsewhere classified; R53.81 Other malaise; R41.82 Altered mental status, unspecified; I10 Essential (primary) hypertension; Z88.2 Allergy status to sulfonamides; Z87.891 Personal history of nicotine dependence; Z53.29 Procedure and treatment not carried out because of patient's decision for other reasons
CPT/HCPCS: 36415; 71010; 80053; 82550; 82553; 84484; 85025; 93005; 93010; 99285

== ENCOUNTER 2016-12-17 08:09 | Observation (INO) | payer MEDICARE, OTHER ==
[2016-12-17] MEDS ORDERED: ASPIRIN 81 MG TABLET, CHEWABLE PO ONE (08:35)
--- NOTE | 2016-12-17 08:51 | ER Document Report ---
ED General - General Chief Complaint: Syncope Stated Complaint: POSSIBLE SYNCOPE Mode of Arrival: Medic Information source: Patient, Relative Notes: 71-year-old female recent diagnosis of pulmonary emboli on xarelto presents after a 3rd syncopal episode. today patient was generally weak, noted to have difficulty lifting herself. pt noted to have been in the bath with her daughter , she moved her leg that was bent and patient syncopized for about 10 seconds. TRAVEL OUTSIDE OF THE [place] IN LAST 30 DAYS: No - HPI Onset: Just prior to arrival Onset/Duration: Sudden Quality of pain: No pain Severity: Mild Pain Level: Denies Associated symptoms: Weakness Exacerbated by: Denies Relieved by: Denies Similar symptoms previously: Yes Recently seen / treated by doctor: Yes - Related Data Allergies/Adverse Reactions: Sulfa (Sulfonamide Antibiotics) Allergy (Verified 12/17/16 08:23) Hives Past Medical History - Social History Smoking Status: Never Smoker Cigarette use (# per day): No Chew tobacco use (# tins/day): No Smoking Education Provided: No Family History: Reviewed & Not Pertinent, Other - DVT and brother and mother - Past Medical History Cardiac Medical History: Reports: Hx Hypercholesterolemia, Hx Hypertension Denies: Hx Coronary Artery Disease, Hx Heart Attack Pulmonary Medical History: Denies: Hx Asthma, Hx Bronchitis, Hx COPD, Hx Pneumonia Neurological Medical History: Denies: Hx Cerebrovascular Accident, Hx Seizures Endocrine Medical History: Reports: Hx Hypothyroidism Renal/ Medical History: Denies: Hx Peritoneal Dialysis Malignancy Medical History: Reports: Hx Breast Cancer GI Medical History: Reports: Hx Gastroesophageal Reflux Disease, Hx Ulcer - YEARS AGO STOMACH. Denies: Hx Hepatitis, Hx Hiatal Hernia Musculoskeltal Medical History: Reports Hx Arthritis Psychiatric Medical History: Denies: Hx Depression Infectious Medical History: Denies: Hx Hepatitis Past Surgical History: Reports: Hx Breast Surgery - cyst on R breast removed, Hx Hysterectomy, Hx Mastectomy - RIGHT BREAST 2014, AVOID RIGHT ARM, Hx Orthopedic Surgery - carpel tunnel, rotator cuff repair R side, Hx Thyroid Surgery - removal. Denies: Hx Open Heart Surgery, Hx Pacemaker - Immunizations Hx Diphtheria, Pertussis, Tetanus Vaccination: Yes - UNSURE Review of Systems - Review of Systems Notes: REVIEW OF SYSTEMS: CONSTITUTIONAL : Denies fever, chills, or sweats. Denies recent illness. EENT: Denies eye, ear, throat, or mouth pain or symptoms. Denies nasal or sinus congestion or discharge. Denies throat, tongue, or mouth swelling or difficulty swallowing. CARDIOVASCULAR: Denies chest pain. Denies palpitations or racing or irregular heart beat. Denies ankle edema. RESPIRATORY: Denies cough, cold, or chest congestion. Denies shortness of breath, difficulty breathing, or wheezing. GASTROINTESTINAL: Denies abdominal pain or distention. Denies nausea, vomiting , or diarrhea. Denies blood in vomitus, stools, or per rectum. Denies black, tarry stools. Denies constipation. GENITOURINARY: Denies difficulty urinating, painful urination, burning, frequency, blood in urine, or discharge. FEMALE GENITOURINARY: Denies vaginal bleeding, heavy or abnormal periods, irregular periods. Denies vaginal discharge or odor. MUSCULOSKELETAL: Denies back or neck pain or stiffness. Denies joint pain or swelling. SKIN: Denies rash, lesions or sores. HEMATOLOGIC : Denies easy bruising or bleeding. LYMPHATIC: Denies swollen, enlarged glands. NEUROLOGICAL: Admits to syncope with generalized weakness PSYCHIATRIC: Denies anxiety or stress. Denies depression, suicidal ideation, or homicidal ideation. ALL OTHER SYSTEMS REVIEWED AND NEGATIVE. Dictation was performed using [employer] voice recognition software PHYSICAL EXAMINATION: GENERAL: Well-appearing, well-nourished and in no acute distress. HEAD: Atraumatic, normocephalic. EYES: Pupils equal round and reactive to light, extraocular movements intact, conjunctiva are normal. ENT: Nares patent, oropharynx clear without exudates. Moist mucous membranes. NECK: Normal range of motion, supple without lymphadenopathy LUNGS: Breath sounds clear to auscultation bilaterally and equal. No wheezes rales or rhonchi. HEART: Tachycardic ABDOMEN: Soft, nontender, nondistended abdomen. No guarding, no rebound. No masses appreciated. Female : deferred Musculoskeletal: Normal range of motion, no pitting or edema. No cyanosis. NEUROLOGICAL: Cranial nerves grossly intact. Normal speech, generalized weakness noted PSYCH: Normal mood, normal affect. SKIN: Warm, Dry, normal turgor, no rashes or lesions noted. Physical Exam - Vital signs Vitals: Resp 20 12/17/16 08:19 Course - Re-evaluation Re-evalutation: 12/17/16 08:52 Patient is noted to be tachycardic, CTA chest lab work imaging are pending at this time 12/17/16 11:16 CTA chest notes no acute abnormality, CK and CK-MB are mildly elevated therefore I will give the patient for an ACS rule out - Vital Signs Vital signs: Temp Pulse Resp BP Pulse Ox 98 F 24 H 118/70 98 12/17/16 08:24 12/17/16 08:20 12/17/16 08:24 12/17/16 09:07 - Laboratory Result Diagrams: 12/17/16 09:02 12/17/16 09:02 Laboratory results interpreted by me: 12/17/16 12/17/16 12/17/16 09:02 09:02 09:02 RDW 14.7 H Lymphocytes % (Manual) 10 L Metamyelocytes % 1 H Est GFR ( Amer) 54 L Est GFR (Non-Af Amer) 45 L Glucose 178 H Calcium 10.3 H AST 58 H Creatine Kinase 889 H CK-MB (CK-2) 10.60 H Total Protein 8.7 H - Diagnostic Test Radiology reviewed: Image reviewed, Reports reviewed - EKG Interpretation by Me EKG shows normal: Sinus rhythm, [place], Intervals, QRS Complexes Discharge - Discharge Clinical Impression: Elevation of cardiac enzymes, Weakness Syncope Qualifiers: Syncope type: unspecified Qualified Code(s): R55 - Syncope and collapse Condition: Stable Disposition: ADMITTED OBSERVATION Admitting Provider: Hospitalist Unit Admitted: Telemetry
[2016-12-17 09:25] LABS: HEMATOCRIT 41.2 % (36.0-47.0); HEMOGLOBIN 13.9 g/dL (12.0-15.5); HGB HCT DIFFERENCE 0.5; MEAN CORPUSCULAR HEMOGLOBIN 29.7 pg (27.0-33.4); MEAN CORPUSCULAR HGB CONC 33.8 g/dL (32.0-36.0); MEAN CORPUSCULAR VOLUME 88 fl (80-97); RED BLOOD COUNT 4.69 10^6/uL (3.72-5.28); RED CELL DISTRIBUTION WIDTH 14.7 % (11.5-14.0); WHITE BLOOD COUNT 8.6 10^3/uL (4.0-10.5)
[2016-12-17 09:54] LABS: BAND NEUTROPHILS % (MANUAL) 4 % (3-5); BASOPHILS % (MANUAL) 0 % (0-2); EOSINOPHILS % (MANUAL) 0 % (0-6); LYMPHOCYTES % (MANUAL) 10 % (13-45); POLYCHROMASIA SLIGHT; TOTAL CELLS COUNTED 100; TOXIC GRANULATION SLIGHT; TOXIC VACUOLATION PRESENT
[2016-12-17 09:55] LABS: ALANINE AMINOTRANSFERASE 37 U/L (9-52); ALBUMIN 4.6 g/dL (3.5-5.0); ALKALINE PHOSPHATASE 120 U/L (38-126); ANION GAP 19 (5-19); ASPARTATE AMINO TRANSFERASE 58 U/L (14-36); BILIRUBIN,DIRECT 0.4 mg/dL (0.0-0.4); BILIRUBIN,TOTAL 0.7 mg/dL (0.2-1.3); BLOOD UREA NITROGEN 14 mg/dL (7-20); CALCIUM 10.3 mg/dL (8.4-10.2); CARBON DIOXIDE 25 mmol/L (22-30); CHLORIDE 99 mmol/L (98-107); CREATINE KINASE 889 U/L (30-135); CREATININE RESULT 1.18 mg/dL (0.52-1.25); GLUCOSE 178 mg/dL (75-110); POTASSIUM 4.2 mmol/L (3.6-5.0); SODIUM 142.8 mmol/L (137-145); TOTAL PROTEIN 8.7 g/dL (6.3-8.2)
[2016-12-17 10:03] LABS: TROPONIN I < 0.012 ng/mL
[2016-12-17] MEDS ORDERED: IPRATROPIUM/ALBUTEROL 0.5-2.5 MG/3 ML AMPUL NEB PRN (12:59)
[2016-12-17] MEDS ORDERED: ACETAMINOPHEN 325 MG TABLET PO PRN (12:59)
[2016-12-17] MEDS ORDERED: ONDANSETRON HCL INJ/PF 4 MG/2 ML SDV IV PRN (12:59)
[2016-12-17] MEDS ORDERED: RINGERS SOLUTION,LACTATED 1,000 ML IV PRN (12:59)
--- NOTE | 2016-12-17 12:59 | PDOC H&P ---
History of Present Illness Admission Date/PCP: marbella trevino Patient complains of: passing out History of Present Illness: BEULAH MARTINS is a 71 year old female presents to the ED for "passing out" at home. this is the third such episode in the last couple of months, most recently diagnosed with PE/DVT as likely explanation and was discharged on Xarelto within the last 30 days. Today she awoke to find she'd lost control of her bladder during the night, soaking the bedclothes and her own, and was too weak to get herself out of bed. she called for help and daughter found her barely able to lift her head or arms, covered in urine, lethargic. she helped her to bathroom but "it took a long time because she could barely carry her own weight", placed her in the bathtub to get her cleaned up and she once again became very weak, slumping down and this time also nonverbal and staring off into distance. she was once gain incontinent but this time of urine and stool. EMS called and transported in, vitals were stable on the scene per ER MD. destinee in ED shows non specific findings of elevated CK and CKMB and mild azotemia when compared to previous and so we were asked to admit for further cardiac evaluation. family reports she was in [place] for about a week in the last 30d and underwent "a whole bunch of tests, all the 'Gs', EEG, EKG, echo and stress test among others" and told nothing was found, ultimately discharged home. They are unsure they want to stay here or sign out AMA and take her to [place] "to get some answers". I explained my planned evaluation and willingness to care for her to best of our abilities. They will let me know. Past Medical History Cardiac Medical History: Reports: DVT, Hyperlipidema, Hypertension, Pulmonary Embolism Denies: Coronary Artery Disease, Myocardial Infarction Pulmonary Medical History: Denies: Asthma, Bronchitis, Chronic Obstructive Pulmonary Disease (COPD), Pneumonia Neurological Medical History: Denies: Seizures Endocrine Medical History: Reports: Hypothyroidism, Obesity Malignancy Medical History: Reports: Breast Cancer GI Medical History: Reports: Gastroesophageal Reflux Disease Denies: Hepatitis, Hiatal Hernia Musculoskeltal Medical History: Reports: Arthritis Psychiatric Medical History: Denies: Depression Hematology: Denies: Anemia, Sickle Cell Disease Past Surgical History Past Surgical History: Reports: Hysterectomy, Mastectomy - RIGHT BREAST 2014, AVOID RIGHT ARM, Orthopedic Surgery - carpel tunnel, rotator cuff repair R side Denies: Amputation, Pacemaker Social History Smoking Status: Never Smoker Frequency of Alcohol Use: None Hx Recreational Drug Use: No Drugs: None Hx Prescription Drug Abuse: No - Advance Directive Resuscitation Status: Full Code Family History Family History: Reviewed & Not Pertinent, Other - DVT and brother and mother Parental Family History Reviewed: Yes Children Family History Reviewed: Yes Sibling(s) Family History Reviewed.: Yes Medication/Allergy Home Medications: Amitriptyline HCl [Elavil 25 mg Tablet] 100 mg PO QHS 11/11/16 Amlodipine Besylate [Norvasc 5 mg Tablet] 5 mg PO QHS 11/11/16 Atorvastatin Calcium [Lipitor 20 mg Tablet] 20 mg PO QHS 11/11/16 Cholecalciferol (Vitamin D3) [Vitamin D3 5000 unit Capsule] 5,000 unit PO DAILY 11/11/16 Diclofenac Sodium [Voltaren 25 mg Tablet.dr] 25 mg PO DAILY 11/11/16 Duloxetine HCl [Cymbalta] 60 mg PO DAILY 11/11/16 Ergocalciferol (Vitamin D2) [Drisdol 50,000 unit (1.25MG) Capsule] 50,000 unit PO HILLS@1000 11/11/16 Gabapentin [Neurontin 300 mg Capsule] 300 mg PO Q8 11/11/16 Letrozole [Femara 2.5 mg Tablet] 2.5 mg PO DAILY 11/11/16 Levothyroxine Sodium [Synthroid 0.075 mg Tablet] 0.075 mg PO DAILY 11/11/16 Omeprazole 20 mg PO BIDACBSP PRN 11/11/16 Potassium Chloride [Klor-Con Sprinkle] 10 meq PO DAILY 11/11/16 Nepafenac [Ilevro] 1 drop OP ASDIR PRN 11/12/16 Rivaroxaban [Xarelto 15 mg Tablet] 15 mg PO BIDBS #40 tablet 11/12/16 Allergies/Adverse Reactions: Sulfa (Sulfonamide Antibiotics) Allergy (Verified 12/17/16 08:23) Hives Review of Systems Constitutional: ABSENT: chills, fever(s), headache(s), weight gain, weight loss Eyes: ABSENT: visual disturbances Ears: ABSENT: hearing changes Cardiovascular: ABSENT: chest pain, dyspnea on exertion, edema, orthropnea, palpitations Respiratory: PRESENT: cough - dry hacking for the last month. ABSENT: hemoptysis Gastrointestinal: PRESENT: nausea. ABSENT: abdominal pain, constipation, diarrhea, hematemesis, hematochezia, vomiting Genitourinary: ABSENT: dysuria, hematuria Musculoskeletal: PRESENT: muscle weakness. ABSENT: joint swelling Integumentary: PRESENT: diaphoresis. ABSENT: rash, wounds Neurological: PRESENT: syncope. ABSENT: abnormal gait, abnormal speech, confusion, dizziness, focal weakness, numbness, tingling Psychiatric: ABSENT: anxiety, depression Endocrine: ABSENT: cold intolerance, heat intolerance, polydipsia, polyuria Hematologic/Lymphatic: ABSENT: easy bleeding, easy bruising Physical Exam Vital Signs: Temp Pulse Resp BP Pulse Ox 98 F 25 H 113/71 98 12/17/16 08:24 12/17/16 11:01 12/17/16 11:01 12/17/16 11:01 PHYSICAL EXAM GENERAL: NAD; well developed, well nourished; mod obese; alert and oriented to person, place, time, situation HEENT: normocephalic, atraumatic; EOMI, PERRLA, no conjunctival injection, no scleral icterus; oral mucosa moist; neck supple, no LAD, normal ROM; thin post- pharynx secretions RESPIRATORY: no accessory muscle use, no increased WOB, good air entry bilaterally; no wheezes, rales, rhonchi; no inspiratory crackles; dry cough with inspiration CARDIO: no JVD; RRR; no systolic murmur; tachycardia - ST on monitor with rate 120 VASCULAR: no carotid bruit; no abdominal bruit; no pallor; 2+ radial, DP pulse ; normal capillary refill GI: soft; nondistended; normal bowel sounds; no hepato spleno megaly; no rebound, rigidity, guarding; nontender NEURO: normal patella reflexes; normal sensation; normal motor function; no dysarthria; no nystagmus; tongue protrudes midline; normal finger to nose; able to cross midline with finger to ear MSK: 5/5 strength; normal ROM hips; ambulatory with assistance due to instability; no tenderness EXTREMITIES: no calf tender; no palpable cords in calf; no clubbing, cyanosis , pedal edema PSYCH: normal affect, normal mood SKIN: warm; moist; no petechiae; no telengectasias; no jaundice; no rash Results Laboratory Results: 12/17/16 09:02 12/17/16 09:02 12/17/16 12/17/16 12/17/16 09:02 09:02 09:02 WBC 8.6 RBC 4.69 Hgb 13.9 Hct 41.2 MCV 88 MCH 29.7 MCHC 33.8 RDW 14.7 H Plt Count 211 Seg Neutrophils % Not Reportable Lymphocytes % Not Reportable Monocytes % Not Reportable Eosinophils % Not Reportable Basophils % Not Reportable Absolute Neutrophils Not Reportable Absolute Lymphocytes Not Reportable Absolute Monocytes Not Reportable Absolute Eosinophils Not Reportable Absolute Basophils Not Reportable Sodium 142.8 Potassium 4.2 Chloride 99 Carbon Dioxide 25 Anion Gap 19 BUN 14 Creatinine 1.18 Est GFR ( Amer) 54 L Est GFR (Non-Af Amer) 45 L Glucose 178 H Calcium 10.3 H Total Bilirubin 0.7 AST 58 H ALT 37 Alkaline Phosphatase 120 Total Protein 8.7 H Albumin 4.6 TSH 0.35 L 12/17/16 12/17/16 09:02 09:02 Creatine Kinase 889 H CK-MB (CK-2) 10.60 H Troponin I < 0.012 Impressions: Chest/Abdomen CTA 12/17/16 08:35 IMPRESSION: No CT evidence central pulmonary embolus. Assessment & Plan - Diagnosis (1) Cardiac enzymes elevated Is this a current diagnosis for this admission?: YesPlan: troponin is normal, unclear etiology; monitor overnight for cardiac dysrythmias and trend cardiac enzymes. she reports recent echo and stress at [facility] so no need to repeat, try to get old records. she has no chest pain or palpitations or other cardiac ischemic signs to speak of. (2) Syncope Qualifiers: Syncope type: unspecified Qualified Code(s): R55 - Syncope and collapse Is this a current diagnosis for this admission?: YesPlan: as above; consider carotid dopplers, B12, MRI brain but she is hesitant due to observation status, she fears what that might cost. (3) ELA (acute kidney injury) Is this a current diagnosis for this admission?: YesPlan: probably prerenal. will hydrate and monitor for response. (4) Weakness Is this a current diagnosis for this admission?: YesPlan: as above. (5) Gastroesophageal reflux disease Is this a current diagnosis for this admission?: YesPlan: PPI Tx (6) Hyperlipidemia Is this a current diagnosis for this admission?: YesPlan: continue home regimen (7) Hypertension Is this a current diagnosis for this admission?: YesPlan: continue home regimen (8) Hypothyroidism Qualifiers: Hypothyroidism type: unspecified Qualified Code(s): E03.9 - Hypothyroidism, unspecified Is this a current diagnosis for this admission?: YesPlan: continue home regimen (9) Pulmonary emboli Qualifiers: Pulmonary embolism type: other Chronicity: unspecified Acute cor pulmonale presence: without acute cor pulmonale Qualified Code(s): I26.99 - Other pulmonary embolism without acute cor pulmonale Is this a current diagnosis for this admission?: YesPlan: continue home regimen - Time Time Spent: 50 to 70 Minutes Medications reviewed and adjusted accordingly: Yes Anticipated discharge: Home Within: within 24 hours
[2016-12-17 13:15] VITALS: BP 110/76
[2016-12-17 13:24] LABS: MAGNESIUM 1.8 mg/dL (1.6-2.3); PHOSPHORUS 5.1 mg/dL (2.5-4.5)
--- NOTE | 2016-12-17 15:58 | EKG REPORT ---
SEVERITY:- BORDERLINE ECG - SINUS TACHYCARDIA PROBABLE LEFT ATRIAL ABNORMALITY : Confirmed by: Meliza Elizabeth 17-Dec-2016 15:56:42
[2016-12-18] MEDS ORDERED: LANSOPRAZOLE 30 MG TAB.RAP.DR PO SCH (06:00)
[2016-12-18] MEDS ORDERED: DOCUSATE SODIUM 100 MG CAPSULE PO SCH (10:00)
== END 2016-12-17 14:24 | disposition left against medical advice (07) ==
LOC: ER 08:09 → EH 12:31
DX: R55 Syncope and collapse (principal); R79.89 Other specified abnormal findings of blood chemistry; N17.9 Acute kidney failure, unspecified; R53.1 Weakness; E78.5 Hyperlipidemia, unspecified; E03.9 Hypothyroidism, unspecified; K21.9 Gastro-esophageal reflux disease without esophagitis; I10 Essential (primary) hypertension; E66.9 Obesity, unspecified; Z85.3 Personal history of malignant neoplasm of breast; Z86.718 Personal history of other venous thrombosis and embolism; Z86.711 Personal history of pulmonary embolism; Z79.01 Long term (current) use of anticoagulants
CPT/HCPCS: 93005; 99285; 36415; 82553; 82607; 82550; 83735; 84100; 84443; 85025; 80053; 84484; 71275; 93010; G0378; A9270

== ENCOUNTER → 2017-01-07 | Outpatient (CLI) | payer MEDICARE, OTHER | LOC: WI 13:39 | PROVIDERS: ATTEND Internal Medicine | DX: M81.0 Age-related osteoporosis without current pathological fracture (principal) | CPT/HCPCS: 77080 ==

== ENCOUNTER → 2018-04-29 | Outpatient (CLI) | payer MEDICARE, OTHER ==
--- NOTE | 2018-04-29 15:52 | RADIOLOGY REPORT (SQ) ---
EXAM DESCRIPTION: VENOUS UNILATERAL LOWER COMPLETED DATE/TIME: 04/29/2018 12:03 pm REASON FOR STUDY: LLE PAIN I82.402 ACUTE EMBOLISM AND THOMBOS UNSP DEEP VEINS OF L LOW COMPARISON: None. TECHNIQUE: Dynamic and static solomon scale and color images acquired of the left leg venous system. Se lected spectral images acquired with additional compression and augmentation maneuvers. The contralat eral common femoral vein and saphenofemoral junction were also imaged. Images stored on PACS. LIMITATIONS: None. FINDINGS: COMMON FEMORAL: Normal phasicity, compression and augmentation. No visualized echogenic ma terial on solomon scale. No defects on color images. FEMORAL: Normal compression and augmentation. No visualized echogenic material on solomon scale. No defe cts on color images. POPLITEAL: Normal compression, augmentation. No visualized echogenic material on solomon scale. No defec ts on color images. CALF VESSELS: Normal compression, augmentation. No visualized echogenic material on solomon scale. No de fects on color images. GSV and SSV: Normal compression, augmentation. No visualized echogenic material on solomon scale. No def ects on color images. ANY DEEP VENOUS INSUFFICIENCY: Not evaluated. ANY EVIDENCE OF POPLITEAL CYST: No. OTHER: No other significant finding. CONTRALATERAL COMMON FEMORAL VEIN AND SAPHENOFEMORAL JUNCTION: Normal phasicity, compression and augmentation. No visualized echogenic material on solomon scale. No de fects on color images. IMPRESSION: NO EVIDENCE DVT OR SVT IN THE LEFT LEG. TECHNICAL DOCUMENTATION: JOB ID: [id number] [employer]- All Rights Reserved Reading location - IP/workstation name: [email or web address]
== END ==
LOC: SP 11:11
PROVIDERS: ATTEND Family Medicine
DX: I82.402 Acute embolism and thrombosis of unspecified deep veins of left lower extremity (principal)
CPT/HCPCS: 93971

== ENCOUNTER 2018-05-22 23:21 | Emergency (ER) | payer MEDICARE, OTHER ==
--- NOTE | 2018-05-23 00:03 | RADIOLOGY REPORT (SQ) ---
CT HEAD WITHOUT IV CONTRAST HISTORY: Fall. COMPARISON: None. TECHNIQUE: CT scan of the brain. This exam was performed according to our departmental dose-optimization program, which includes automated exposure control, adjustment of the mA and/or kV according to patient size and/or use of iterative reconstruction technique. FINDINGS: No intracranial hemorrhage. No midline shift, mass effect, or hydrocephalus. Tavares-white matter differentiation is preserved without evidence of acute infarction. Diffuse involutional changes are present. Scattered areas of hypoattenuation within the periventricular and subcortical white matter consistent with chronic microvascular ischemia. Senescent basal calcifications are present. Paranasal sinuses and mastoid air cells are clear. Calvarium is intact. IMPRESSION: No acute intracranial abnormality.
--- NOTE | 2018-05-23 00:09 | RADIOLOGY REPORT (SQ) ---
CT CERVICAL SPINE WITHOUT IV CONTRAST HISTORY: trauma. COMPARISON: None.. TECHNIQUE: CT scan of the cervical spine. This exam was performed according to our departmental dose-optimization program, which includes automated exposure control, adjustment of the mA and/or kV according to patient size and/or use of iterative reconstruction technique. FINDINGS: No acute fracture. Chronic appearing ossific fragments superior to the dens. No dislocation along the atlanto-occipital, atlantoaxial, or facet joints. Reversal of the normal cervical lordosis centered at C5-C6. Multilevel degenerative disc disease greatest at C5-C6. No significant canal stenosis. No prevertebral soft tissue swelling. Right apical scarring. IMPRESSION: No acute fracture or static listhesis.
--- NOTE | 2018-05-23 01:15 | ER Document Report ---
ED Medical Screen (RME) - General Chief Complaint: Fall Stated Complaint: FALL Time Seen by Provider: 05/23/18 00:53 Mode of Arrival: Wheelchair Information source: Patient Notes: Patient is a 73-year-old female who presents with chief complaint of mechanical fall. Patient reports she was walking through her house when she tripped and fell into a sliding glass door breaking the glass. Patient reports that she has a laceration to the bottom of her right foot, a abrasion to her right hand, and abrasion across her bridge of her nose. Patient reports she is on blood thinners. Exam: Abrasion noted to patient's face across the bridge of nose. No active bleeding at the site. Laceration noted under patient's right third toe, active bleeding noted. I have greeted and performed a rapid initial assessment of this patient. A comprehensive ED assessment and evaluation of the patient, analysis of test results and completion of the medical decision making process will be conducted by additional ED providers. Dictation of this chart was performed using voice recognition software; therefore, there may be some unintended grammatical errors. TRAVEL OUTSIDE OF THE [place] IN LAST 30 DAYS: No - Related Data Allergies/Adverse Reactions: Sulfa (Sulfonamide Antibiotics) Allergy (Verified 12/17/16 08:23) Hives Past Medical History - Past Medical History Cardiac Medical History: Reports: Hx DVT, Hx Hypercholesterolemia, Hx Hypertension, Hx Pulmonary Embolism Denies: Hx Coronary Artery Disease, Hx Heart Attack Pulmonary Medical History: Denies: Hx Asthma, Hx Bronchitis, Hx COPD, Hx Pneumonia Neurological Medical History: Denies: Hx Cerebrovascular Accident, Hx Seizures Endocrine Medical History: Reports: Hx Hypothyroidism Renal/ Medical History: Denies: Hx Peritoneal Dialysis Malignancy Medical History: Reports: Hx Breast Cancer GI Medical History: Reports: Hx Gastroesophageal Reflux Disease, Hx Ulcer - YEARS AGO STOMACH. Denies: Hx Hepatitis, Hx Hiatal Hernia Musculoskeltal Medical History: Reports Hx Arthritis Psychiatric Medical History: Denies: Hx Depression Infectious Medical History: Denies: Hx Hepatitis Past Surgical History: Reports: Hx Breast Surgery - cyst on R breast removed, Hx Hysterectomy, Hx Mastectomy - RIGHT BREAST 2014, AVOID RIGHT ARM, Hx Orthopedic Surgery - carpel tunnel, rotator cuff repair R side, Hx Thyroid Surgery - removal. Denies: Hx Open Heart Surgery, Hx Pacemaker - Immunizations Hx Diphtheria, Pertussis, Tetanus Vaccination: Yes - UNSURE Physical Exam - Vital signs Vitals: Temp Pulse Resp BP Pulse Ox 98 F 96 20 126/71 H 97 05/22/18 23:32 05/22/18 23:32 05/22/18 23:32 05/22/18 23:32 05/22/18 23:32 Course - Vital Signs Vital signs: Temp Pulse Resp BP Pulse Ox 98 F 96 20 126/71 H 97 05/22/18 23:32 05/22/18 23:32 05/22/18 23:32 05/22/18 23:32 05/22/18 23:32 Doctor's Discharge - Discharge Referrals: CRUZ MATIAS MD [Primary Care Provider] - Follow up as needed
--- NOTE | 2018-05-23 01:31 | RADIOLOGY REPORT (SQ) ---
EXAM DESCRIPTION: XR FOOT 3 OR MORE VIEWS COMPLETED DATE/TME: 05/23/2018 00:54 CLINICAL HISTORY: 73 years Female, eval for foreign body under 3rd toe COMPARISON: None. Findings: Known soft tissue injury; no radioopaque foreign body. Diffuse bone demineralization. Mild osteoarthritis. Small calcaneal enthesophytes. Bones, joints, and soft tissues of the XR FOOT 3 OR MORE VIEWS appear otherwise intact. IMPRESSION: Soft tissue injury; else, no acute findings. .
[2018-05-23] MEDS ORDERED: DIPH/PERTUSS(ACELL)/TETANUS VAC/PF 0.5 ML SYR (>=10YO) IM ONE (01:50)
--- NOTE | 2018-05-23 01:50 | ER Document Report ---
ED General - General Chief Complaint: Fall Stated Complaint: FALL Time Seen by Provider: 05/23/18 00:53 Mode of Arrival: Wheelchair Notes: Patient is a 73 year old female with a past medical history of a pulmonary embolus currently anticoagulated with specific agent she is uncertain of, who presents after having a mechanical fall in which she tripped over a rug and fell through a glass door. She denies loss of consciousness, vomiting, focal weakness or numbness, confusion, or any additional symptoms since the fall begun bleeding from several small lacerations particularly over her right foot. She did strike her head. She has not contacted her general doctor regarding today's concerns. No history of similar injuries in the past. She denies any lightheadedness or syncope as the etiology of today's fall. She does only complain of mild, stinging pain to the space between her second and third toe on the right foot. Nothing improves or worsens that pain. TRAVEL OUTSIDE OF THE [place] IN LAST 30 DAYS: No - Related Data Allergies/Adverse Reactions: Sulfa (Sulfonamide Antibiotics) Allergy (Verified 12/17/16 08:23) Hives Past Medical History - General Information source: Patient - Social History Smoking Status: Former Smoker Chew tobacco use (# tins/day): No Frequency of alcohol use: None Drug Abuse: None Lives with: Alone Family History: Reviewed & Not Pertinent, Other - DVT and brother and mother Patient has suicidal ideation: No Patient has homicidal ideation: No - Past Medical History Cardiac Medical History: Reports: Hx DVT, Hx Hypercholesterolemia, Hx Hypertension, Hx Pulmonary Embolism Denies: Hx Coronary Artery Disease, Hx Heart Attack Pulmonary Medical History: Denies: Hx Asthma, Hx Bronchitis, Hx COPD, Hx Pneumonia Neurological Medical History: Denies: Hx Cerebrovascular Accident, Hx Seizures Endocrine Medical History: Reports: Hx Hypothyroidism Renal/ Medical History: Denies: Hx Peritoneal Dialysis Malignancy Medical History: Reports: Hx Breast Cancer GI Medical History: Reports: Hx Gastroesophageal Reflux Disease, Hx Ulcer - YEARS AGO STOMACH. Denies: Hx Hepatitis, Hx Hiatal Hernia Musculoskeletal Medical History: Reports Hx Arthritis Psychiatric Medical History: Denies: Hx Depression Infectious Medical History: Denies: Hx Hepatitis Past Surgical History: Reports: Hx Breast Surgery - cyst on R breast removed, Hx Hysterectomy, Hx Mastectomy - RIGHT BREAST 2014, AVOID RIGHT ARM, Hx Orthopedic Surgery - carpel tunnel, rotator cuff repair R side, Hx Thyroid Surgery - removal. Denies: Hx Open Heart Surgery, Hx Pacemaker - Immunizations Hx Diphtheria, Pertussis, Tetanus Vaccination: Yes - UNSURE Review of Systems - Review of Systems Notes: Constitutional: Negative for fever. Eyes: Negative for visual changes. ENT: Negative for facial injury Cardiovascular: Negative for chest injury. Respiratory: Negative for shortness of breath. Gastrointestinal: Negative for abdominal injury. Genitourinary: Negative for genital injury Musculoskeletal: Negative for back injury. Skin: Positive for laceration/abrasions. Neurological: Positive for head injury. Physical Exam - Vital signs Vitals: Temp Pulse Resp BP Pulse Ox 98 F 96 20 126/71 H 97 05/22/18 23:32 05/22/18 23:32 05/22/18 23:32 05/22/18 23:32 05/22/18 23:32 Interpretation: Normal Notes: PHYSICAL EXAMINATION: GENERAL: Well-appearing, no acute distress. HEAD: Atraumatic, normocephalic. EYES: Pupils equal round and reactive to light, extraocular movements intact, sclera anicteric, conjunctiva are normal. ENT: nares patent, no oral pharyngeal trauma. No hemotympanum, no Shin's sign , no raccoon eyes. NECK: No midline cervical spine tenderness. Patient able to move their head to 45 bilaterally without any discomfort. LUNGS: Breath sounds clear to auscultation bilaterally and equal. No wheezes rales or rhonchi. HEART: Regular rate and rhythm without murmurs. CHEST WALL: No ecchymosis over the chest wall. ABDOMEN: Soft, nontender, normoactive bowel sounds. No guarding, no rebound. No abdominal bruising EXTREMITIES: Normal range of motion, no pitting or edema. No long bone deformities. BACK: No midline spinal tenderness, step-offs, or deformities. NEUROLOGICAL: Face symmetric. Tongue protrudes midline. Extraocular motions intact. Pupils are 2 mm and equally reactive. Normal speech, normal gait. 5 out of 5 strength in both the distal and proximal upper and lower extremities bilaterally. Sensation is grossly intact throughout. Finger to nose testing normal. Pronator drift normal. PSYCH: Normal mood, normal affect. SKIN: Warm, Dry, normal turgor, superficial laceration between the second and third digit of the right foot, superficial laceration of the third digit of the right hand over the PIP, superficial lacerations of the right cheek and left forehead Course - Re-evaluation Re-evalutation: 05/23/18 01:46 Presentation of a well appearing elderly patient in no acute distress, vitals within normal limits after a mechanical fall. Patient denies a syncopal episode as the cause for today's fall. No focal neurologic deficits on exam, no evidence of basilar skull fracture on exam without evidence of hemotympanum, raccoon eyes, or periauricular hematoma. No papilledema. Patient is not on anticoagulation. GCS is 15. No loss of consciousness. No episodes of vomiting. However, based on patient's age a CT of the head has been obtained which is negative for any acute intracranial bleed. Likewise, patient was unable to be clinically cleared due to age by [place] cervical spine criteria. A CT of the cervical spine was also obtained and likewise is negative for any acute fracture. No indication for further imaging of the cervical spine. Patient has no focal deformities or limited range of motion in any joint space. Chest and abdominal exam are benign without any focal tenderness, shortness of breath, or bruising over the chest or abdominal wall. Patient has no flank tenderness. There is no obvious findings on trauma exam today and therefore no further imaging or evaluation will be obtained at this time. At this time will discharge with return precautions and follow-up recommendations. Verbal discharge instructions given a the bedside and opportunity for questions given. Medication warnings reviewed. Patient is in agreement with this plan and has verbalized understanding of return precautions and the need for primary care follow-up in the next 24-72 hours. - Vital Signs Vital signs: Temp Pulse Resp BP Pulse Ox 98 F 96 20 126/71 H 97 05/22/18 23:32 05/22/18 23:32 05/22/18 23:32 05/22/18 23:32 05/22/18 23:32 - Diagnostic Test Radiology reviewed: Image reviewed, Reports reviewed Radiology results interpreted by me: 05/23/18 02:53 CT head: No acute intracranial bleed or mass Discharge - Discharge Clinical Impression: Superficial laceration Fall Qualifiers: Encounter type: initial encounter Qualified Code(s): W19.XXXA - Unspecified fall, initial encounter Head trauma Qualifiers: Encounter type: initial encounter Qualified Code(s): S09.90XA - Unspecified injury of head, initial encounter Condition: Good Disposition: HOME, SELF-CARE Additional Instructions: You have been seen in the Emergency Department (ED) today following a fall. Your workup today did not reveal any injuries that require you to stay in the hospital. You can expect, though, to be stiff and sore for the next several days. You can take Tylenol 1000 mg every 6 hours as needed for pain. You can apply a hot pack or electric heating pad to the sore areas. You can also use topical "Aspercreme with lidocaine" to sore areas as needed. Please follow up with your primary care doctor as soon as possible regarding today's ED visit and your recent accident. Call your doctor or return to the ED if you develop a sudden or severe headache , confusion, slurred speech, facial droop, weakness or numbness in any arm or leg, extreme fatigue, vomiting more than two times, severe abdominal pain, or other symptoms that concern you. Referrals: CRUZ MATIAS MD [Primary Care Provider] - Follow up as needed
[2018-05-23 02:59] VITALS: BP 124/76
== END 2018-05-23 02:57 | disposition home or self-care (01) ==
LOC: ER 23:21
DX: S91.311A Laceration without foreign body, right foot, initial encounter (principal); S61.212A Laceration without foreign body of right middle finger without damage to nail, initial encounter; S01.411A Laceration without foreign body of right cheek and temporomandibular area, initial encounter; S01.81XA Laceration without foreign body of other part of head, initial encounter; W01.110A Fall on same level from slipping, tripping and stumbling with subsequent striking against sharp glass, initial encounter; I10 Essential (primary) hypertension; Z85.3 Personal history of malignant neoplasm of breast; Z88.2 Allergy status to sulfonamides; Z87.891 Personal history of nicotine dependence
CPT/HCPCS: 70450; 72125; 90471; 90715; 99284

== ENCOUNTER → 2018-10-09 | Day surgery (SDC) | payer MEDICARE, OTHER ==
[~2018-10-09] MED LIST: BUPIVACAINE HCL 0.5 % INJ/PF 30 ML SDV ONE; LIDOCAINE 1% INJ-PF (10 MG/ML) 30 ML SDV ONE
--- NOTE | 2018-10-09 10:55 | Operative Report ---
PREOPERATIVE DIAGNOSIS: Spondylolisis without myopathy or radiculopathy M47.818// Lumbar Sacral Spondylolisis without myopathy or radiculopathy M47.817 POSTOPERATIVE DIAGNOSIS:Spondylolisis without myopathy or radiculopathy M47.818// Lumbar Sacral Spondylolisis without myopathy or radiculopathy M47.817 PROCEDURE: 1. Radiofrequency Ablation of bilateral L5 dorsal Ramus 2. Sacroiliac Joint Ablation - Lateral Branches of bilateral S1, S2, S3 DATE OF PROCEDURE: October 09, 2018 ANESTHESIA: Local COMPLICATIONS: None CONSENT: A full description of the procedure was provided including benefits as well as possible complications. All questions were answered and informed consent was given and signed. ASA guidelines for fasting were verified prior to s edation. PROCEDURE IN DETAIL The patient was brought into the fluoroscopy suite and carefully assisted into the prone position on the fluoroscopy table and allowed to adjust to a position of comfort. A grounding pad was placed on the right thigh. The low back and buttocks were widely prepped with a chloraprep solution, allowed to air dry and draped in standard sterile surgical fashion. Local anesthesia was provided by 12 mL of 1 % lidocaine delivered with a 25 g needle. PROCEDURE #1: Radiofrequency Ablation of Dorsal Ramus of bilateral L5. A 17g 100mm radiofrequency introducer needle was placed to the planned anatomic target, guided with intermittent fluoroscopy with a perpendicular approach, to terminally place at the bilateral sacral ala. The stylets were removed and the radiofrequency probes with a 4mm active tip were then inserted. Needle tip position of the probes were verified in the AP, oblique, and lateral views. At each site, the medial branch nerve was stimulated at 2Hz to a maximum of 1- 2volts determined to finalize safe needle and electrode placement. The patient was awake and responsive during this portion of the procedure. Each target was anesthetized with 2mL of 2 % Sensorcaine anesthesia for lesioning and then each target was lesioned at 80 degrees Celsius for 2 minutes and 30 seconds. Tissue impedences were noted to be between 250 and 500 Ohms. PROCEDURE #2: Radiofrequency Ablation of bilateral S1, S2, S3 Lateral Branches Using the AP fluoroscopic view for visualization of the lateral PSFA as defined by the pre-placed 27-gauge Quincke needles, appropriate skin starting positions were defined. Using the PSFA as a "clock-face", the positions were: S1; bilateral = 1 and 5 oclock S2; bilateral = 1 and 5 oclock S3; bilateral = 3 oclock Using fluoroscopic guidance, a 17g introducer needle was inserted sequentially onto the target positions described above until the introducer tip touched the bony surface of the sacrum. The stylet was withdrawn from the introducer and the radiofrequency probe with a 4 mm active tip was fully inserted into the introducer. A lateral view was obtained for standard reference. At each of the targets, needle placement was verified with the use of multi-planar fluoroscopy. The needle tip position was approximately 7 - 10mm lateral to the PSFA as determined by using an Epsilon ruler. At each site, the lateral branch nerve was stimulated at 2 Hz to a maximum of 1- 2 volts determined to finalize safe needle and electrode placement. The patient was awake and responsive during this portion of the procedure. Each target was anesthetized with 2 mL of 2 % Sensorcaine anesthesia for lesioning and then each target was lesioned at 80 degrees Celsius for 2 minutes and 30 seconds. Tissue impedences were noted to be between 250- 500 Ohms. At the conclusion of the lesioning the needles were removed and bandages placed over the needle placement sites and the patient returned to the supine position on a stretcher and transp orted to the recovery room without hemodynamic, neurologic, or allergic reactions. Fluoroscopic images were printed for hard copy recording and digitally archived. FLUOROSCOPIC INTERPRETATION: Appropriate epidurogram obtained. Appropriate lesioning of the 10 targets noted. POST PROCEDURE EVALUATION: The patient was comfortable in the recovery room. The patient is aware that pain may worsen before remitting and 4 6 weeks may be required prior to the onset of pain relief. IMPRESSION: 1. Technically successful sacral lateral branch, lumbar dorsal ramus for denervation from L5-S3 on the bilateral without complication. 2. RTC in 2 weeks. 3. Estimated Blood Loss: None 4. Fluoroscopy time: 30 seconds
== END ==
LOC: RAD 10:44
PROVIDERS: ATTEND Family Medicine
DX: M47.817 Spondylosis without myelopathy or radiculopathy, lumbosacral region (principal)
CPT/HCPCS: 64635; 64640 ×3; J3490 ×2

== ENCOUNTER → 2019-01-12 | Outpatient (CLI) | payer MEDICARE, OTHER ==
--- NOTE | 2019-01-12 09:22 | WOMENS IMAGING REPORT ---
EXAM DESCRIPTION: BONE DENSITY HIP/SPINE COMPLETED DATE/TIME: 01/12/2019 8:54 am REASON FOR STUDY: M81.0 AGE-RELATED OSTEOPOROSIS WITHOUT CURRENT PATHOLOGICAL FRACTURE M81.0 AGE-RE LATED OSTEOPOROSIS W/O CURRENT PATHOLOGICAL FRAC COMPARISON: 2016, 2013, 2007, 2004, 2003 TECHNIQUE: Dual-Energy X-ray Absorptiometry (DEXA) of the AP Spine and Hip. LIMITATIONS: None. FINDINGS: LUMBAR SPINE: The bone mineral density (BMD) measured from L1-L4 in the AP projection correlates with a T-score of -1.6, which is osteopenic as defined by the World Health Organization. This is stable compared to 20 17 HIP: The bone mineral density (BMD) measured in the left femoral neck at the lower hip correlates with a T -score of -1.1, which is osteopenic as defined by the World Health Organization. This is stable comp ared to 2017 1 IMPRESSION: 1. LUMBAR SPINE: Osteopenic 2. HIP: Osteopenic COMMENT: The World Health Organization defines low BMD as follows: T-score: Normal: Greater than -1.0 Osteopenia: Between -1.0 and -2.5 Osteoporosis: Less than -2.5 without fractures Established osteoporosis: Less than -2.5 with fractures In general, you may wish to consider: Diagnosis Treatment Follow-up DEXA Normal BMD Prevention 2-3 years Osteopenia Prevention/Therapy 1-2 years Osteoporosis Therapy Yearly TECHNICAL DOCUMENTATION: JOB ID: [id number]- All Rights Reserved Reading location - IP/workstation name: [email or web address]
== END ==
LOC: WI 08:05
PROVIDERS: ATTEND Physician Assistant Medical
DX: M81.0 Age-related osteoporosis without current pathological fracture (principal)
CPT/HCPCS: 77080

== ENCOUNTER → 2019-02-11 | Outpatient (CLI) | payer MEDICARE, OTHER ==
[2019-02-11 18:30] LABS: HEMATOCRIT 37.7 % (36.0-47.0); HEMOGLOBIN 12.5 g/dL (12.0-15.5); MEAN CORPUSCULAR HEMOGLOBIN 29.3 pg (27.0-33.4); MEAN CORPUSCULAR HGB CONC 33.2 g/dL (32.0-36.0); MEAN CORPUSCULAR VOLUME 88 fl (80-97); PLATELET COUNT 219 10^3/uL (150-450); RED BLOOD COUNT 4.27 10^6/uL (3.72-5.28); RED CELL DISTRIBUTION WIDTH 13.4 % (11.5-14.0); WHITE BLOOD COUNT 5.5 10^3/uL (4.0-10.5)
[2019-02-11 18:59] LABS: ALANINE AMINOTRANSFERASE 20 U/L (9-52); ALBUMIN 4.1 g/dL (3.5-5.0); ALKALINE PHOSPHATASE 91 U/L (38-126); ANION GAP 8 (5-19); ASPARTATE AMINO TRANSFERASE 19 U/L (14-36); BILIRUBIN,DIRECT 0.3 mg/dL (0.0-0.4); BILIRUBIN,TOTAL 0.5 mg/dL (0.2-1.3); BLOOD UREA NITROGEN 12 mg/dL (7-20); C-REACTIVE PROTEIN 14.6 mg/L (<10.0); CARBON DIOXIDE 30 mmol/L (22-30); CHLORIDE 103 mmol/L (98-107); GLUCOSE 93 mg/dL (75-110); POTASSIUM 4.3 mmol/L (3.6-5.0); SODIUM 141.2 mmol/L (137-145); TOTAL PROTEIN 7.5 g/dL (6.3-8.2)
[2019-02-11 19:47] LABS: FREE T3 2.94 pg/mL (2.77-5.27); FREE T4 (FREE THYROXINE) 0.97 ng/dL (0.78-2.19)
[2019-02-11 20:00] LABS: THYROID STIMULATING HORMONE 1.16 uIU/mL (0.47-4.68)
== END ==
LOC: OD 16:44
PROVIDERS: ATTEND Family Medicine
DX: M25.50 Pain in unspecified joint (principal); R53.81 Other malaise
CPT/HCPCS: 36415; 80053; 84439; 84443; 84481; 85027; 85652; 86140

== ENCOUNTER 2020-01-22 23:10 | Emergency (ER) | payer MEDICARE, OTHER ==
[2020-01-23 00:24] LABS: ABSOLUTE BASOPHILS # (AUTO) 0.1 10^3/uL (0.0-0.2); ABSOLUTE EOSINOPHILS # (AUTO) 0.1 10^3/uL (0.0-0.6); ABSOLUTE LYMPHOCYTES (AUTO) 1.8 10^3/uL (0.5-4.7); ABSOLUTE MONOCYTES (AUTO) 0.4 10^3/uL (0.1-1.4); ABSOLUTE NEUT (AUTO) 4.8 10^3/uL (1.7-8.2); BASOPHILS % (AUTO) 0.8 % (0-2); EOSINOPHILS % (AUTO) 1.7 % (0-6); HEMATOCRIT 36.3 % (36.0-47.0); HEMOGLOBIN 12.5 g/dL (12.0-15.5); LYMPHOCYTES % (AUTO) 25.2 % (13-45); MEAN CORPUSCULAR HEMOGLOBIN 29.2 pg (27.0-33.4); MEAN CORPUSCULAR HGB CONC 34.3 g/dL (32.0-36.0); MEAN CORPUSCULAR VOLUME 85 fl (80-97); MONOCYTES % (AUTO) 5.9 % (3-13); PLATELET COUNT 246 10^3/uL (150-450); RED BLOOD COUNT 4.27 10^6/uL (3.72-5.28); RED CELL DISTRIBUTION WIDTH 14.7 % (11.5-14.0); SEGMENTED NEUTROPHILS % (AUTO) 66.4 % (42-78); TOTAL CELLS COUNTED % (AUTO) 100 %; WHITE BLOOD COUNT 7.2 10^3/uL (4.0-10.5)
[2020-01-23] MEDS ORDERED: ACETAMINOPHEN 325 MG TABLET PO ONE (00:29)
[2020-01-23 00:44] LABS: ALBUMIN 4.2 g/dL (3.5-5.0); ALKALINE PHOSPHATASE 94 U/L (38-126); ANION GAP 10 (5-19); ASPARTATE AMINO TRANSFERASE 21 U/L (14-36); BILIRUBIN,TOTAL 0.4 mg/dL (0.2-1.3); BLOOD UREA NITROGEN 13 mg/dL (7-20); CALCIUM 10.1 mg/dL (8.4-10.2); CARBON DIOXIDE 28 mmol/L (22-30); CHLORIDE 102 mmol/L (98-107); CREATINE KINASE 124 U/L (30-135); GLUCOSE 147 mg/dL (75-110); POTASSIUM 3.3 mmol/L (3.6-5.0); TOTAL PROTEIN 7.6 g/dL (6.3-8.2)
[2020-01-23 00:57] LABS: CREATINE KINASE MB 1.83 ng/mL (<4.55)
[2020-01-23 01:01] LABS: TROPONIN I < 0.012 ng/mL
[2020-01-23] MEDS ORDERED: MORPHINE SULFATE 10 MG/ML INJ IV ONE ×2 (01:51→02:35)
[2020-01-23] MEDS ORDERED: ONDANSETRON HCL INJ/PF 4 MG/2 ML SDV IV ONE (01:51)
--- NOTE | 2020-01-23 01:52 | RADIOLOGY REPORT (SQ) ---
CLINICAL HISTORY: chest pain COMPARISON: 11/10/2016. TECHNIQUE: XR CHEST 1 VIEW 01/23/2020 1:23 AM CDT FINDINGS: Cardiac silhouette is normal in size. Lungs are clear without consolidation, atelectasis, mass or edema. There is no pleural effusion. There is no pneumothorax. There are no acute osseous findings. IMPRESSION: Clear lungs.
--- NOTE | 2020-01-23 01:53 | ER Document Report ---
ED General - General Chief Complaint: Chest Pain Stated Complaint: CHEST PAIN Time Seen by Provider: 01/23/20 01:43 Notes: Patient is a 74-year-old female that comes emergency department for chief complaint of left upper quadrant abdominal pain that goes up into her left breast area. She states symptoms started yesterday evening, about 24 hours ago. She states that the seem to worsen today. She denies flank pain, she reports some vague nausea intermittently, she denies vomiting. She denies fever, cough, shortness of breath, injury. She denies history of DC or CAD, she does have a history of DVT and is on Xarelto, she also has a history of hysterectomy, thyroidectomy, right mastectomy, hypertension, hyperlipidemia, PUD. TRAVEL OUTSIDE OF THE [place] IN LAST 30 DAYS: No - Related Data Allergies/Adverse Reactions: Sulfa (Sulfonamide Antibiotics) Allergy (Verified 12/17/16 08:23) Hives Home Medications: Amlodipine. potassium. xarelto. synthroid. atorvastatin. metoprolol. omeprazole. vitamin D3. Duloxetine Past Medical History - General Information source: Patient - Social History Smoking Status: Former Smoker Chew tobacco use (# tins/day): No Frequency of alcohol use: None Drug Abuse: None Family History: Reviewed & Not Pertinent, Other - DVT and brother and mother Patient has homicidal ideation: No - Past Medical History Cardiac Medical History: Reports: Hx DVT, Hx Hypercholesterolemia, Hx Hypertension, Hx Pulmonary Embolism Denies: Hx Coronary Artery Disease, Hx Heart Attack Pulmonary Medical History: Denies: Hx Asthma, Hx Bronchitis, Hx COPD, Hx Pneumonia Neurological Medical History: Denies: Hx Cerebrovascular Accident, Hx Seizures Endocrine Medical History: Reports: Hx Hypothyroidism Renal/ Medical History: Denies: Hx Peritoneal Dialysis Malignancy Medical History: Reports: Hx Breast Cancer GI Medical History: Reports: Hx Gastroesophageal Reflux Disease, Hx Ulcer - YEARS AGO STOMACH. Denies: Hx Hepatitis, Hx Hiatal Hernia Musculoskeletal Medical History: Reports Hx Arthritis Psychiatric Medical History: Denies: Hx Depression Infectious Medical History: Denies: Hx Hepatitis Past Surgical History: Reports: Hx Breast Surgery - cyst on R breast removed, Hx Hysterectomy, Hx Mastectomy - RIGHT BREAST 2014, AVOID RIGHT ARM, Hx Orthopedic Surgery - carpel tunnel, rotator cuff repair R side, Hx Thyroid Surgery - removal. Denies: Hx Open Heart Surgery, Hx Pacemaker - Immunizations Hx Diphtheria, Pertussis, Tetanus Vaccination: Yes - UNSURE Review of Systems - Review of Systems Constitutional: No symptoms reported EENT: No symptoms reported Cardiovascular: See HPI Respiratory: No symptoms reported Gastrointestinal: See HPI Genitourinary: No symptoms reported Female Genitourinary: No symptoms reported Musculoskeletal: No symptoms reported Skin: No symptoms reported Hematologic/Lymphatic: No symptoms reported Neurological/Psychological: No symptoms reported Physical Exam - Vital signs Vitals: Temp Pulse Resp BP Pulse Ox 98.8 F 89 18 136/87 H 96 01/22/20 23:18 01/22/20 23:18 01/22/20 23:18 01/22/20 23:18 01/22/20 23:18 - Notes Notes: GENERAL: Alert, interacts well. No acute distress. HEAD: Normocephalic, atraumatic. EYES: Pupils equal, round, and reactive to light. Extraocular movements intact. ENT: Oral mucosa moist, tongue midline. Oropharynx unremarkable. Airway patent. NECK: Full range of motion. Supple. Trachea midline. No lymphadenopathy. LUNGS: Clear to auscultation bilaterally, no wheezes, rales, or rhonchi. No respiratory distress. Non-tender chest wall. HEART: Regular rate and rhythm. No murmur ABDOMEN: Tenderness in the left mid to upper abdomen, no guarding, no rigidity, no distention. Bowel sounds present. Otherwise unremarkable. GENITOURINARY: Deferred EXTREMITIES: Moves all 4 extremities spontaneously. No edema, normal radial and dorsalis pedis pulses bilaterally. No cyanosis. BACK: no cervical, thoracic, lumbar midline tenderness. No saddle anesthesia, normal distal neurovascular exam. Moves all extremities in full range of motion. NEUROLOGICAL: Alert and oriented x3. Normal speech. Cranial nerves II through XII grossly intact. Strength 5/5 in all extremities. PSYCH: Normal affect, normal mood. SKIN: Warm, dry, normal turgor. No rashes or lesions noted. Course - Re-evaluation Re-evalutation: Patient is smiling, talkative, well-appearing. She actually does have left- sided mid to upper abdominal tenderness on exam along with reported symptoms of nausea. CBC, chemistry unremarkable, lipase is not elevated, troponin is negative. Chest x-ray and EKG without acute findings. This appears to be gastrointestinal in nature. Because of the location of the pain, persistent pain and nausea, and worsening symptoms I discussed with patient and decision was made to perform CT of the abdomen and pelvis to rule out acute etiology. Patient is also very concerned because of her history of cancer. Troponin cycled and negative. CT performed and shows some proximal small bowel enteritis but otherwise unremarkable. No obstructive findings noted. Patient is able to eat. I do not suspect severe infection, patient has no leukocytosis, vomiting, fever, or severe tenderness. Patient is much more comfortable after medications and IV fluids. Discussed options, decision was made to not treat with antibiotics but instead to treat with antacids, bland diet, and primary care follow-up. Discussed return precautions at length. Patient states appreciation and agreement. Stable and asymptomatic at time of discharge. - Vital Signs Vital signs: Temp Pulse Resp BP Pulse Ox 97.4 F 89 14 132/99 H 95 01/23/20 04:37 01/22/20 23:18 01/23/20 04:36 01/23/20 04:37 01/23/20 04:37 - Laboratory Result Diagrams: 01/22/20 00:05 01/22/20 00:05 Laboratory results interpreted by me: 01/22/20 01/22/20 00:05 00:05 RDW 14.7 H Potassium 3.3 L Glucose 147 H - EKG Interpretation by Me Additional EKG results interpreted by me: EKG shows sinus rhythm at a rate of 83, first-degree AV block with OH interval of 256, borderline left axis deviation. No T wave inversions or ST segment c hanges in consecutive leads. Discharge - Discharge Clinical Impression: Upper abdominal pain Condition: Stable Disposition: HOME, SELF-CARE Instructions: Oral Narcotic Medication ([facility]) Additional Instructions: Your work-up is reassuring and shows inflammation in the upper part of your gastrointestinal tract, the remaining tests do not show any concerning findings. This is called gastritis and enteritis. Take Zofran for nausea if needed, take Carafate and Pepcid as prescribed to help treat this, you can take additional Rolaids, Tums, Maalox, etc. if needed. You can take Tylenol for pain or the stronger [place] you have been given tonight (although this can cause constipation with repeated use). Avoid NSAIDs, alcohol, smoking, caffeine, spicy food. Start with clear fluids, progress to bland diet. Follow-up with primary care for additional evaluation and treatment including possible H. pylori testing. Return if you worsen including uncontrolled vomiting, vomiting blood, black stools, severe pain, fever of 100.4 or greater, or any other concerning or worsening symptoms. Prescriptions: Sucralfate [Carafate 1 gm Tablet] 1 gm PO QID #20 tablet Famotidine [Pepcid 20 mg Tablet] 20 mg PO BID #14 tablet Ondansetron [Zofran Odt 4 mg Tablet] 1 - 2 tab PO Q4H PRN #15 tab.rapdis PRN Reason: For Nausea/Vomiting
--- NOTE | 2020-01-23 03:38 | RADIOLOGY REPORT (SQ) ---
CLINICAL HISTORY: left sided abd pain COMPARISON: None. TECHNIQUE: CT ABDOMEN PELVIS WITH IV CONTRAST on 01/23/2020 2:34 AM CDT This exam was performed according to our departmental dose-optimization program, which includes automated exposure control, adjustment of the mA and/or kV according to patient size and/or use of iterative reconstruction technique. FINDINGS: Lower lungs are clear. Abdomen: The liver is normal in appearance. There is no biliary dilatation. Gallbladder contains several tiny gallstones. The pancreas and spleen are normal in appearance. There are two probable right adrenal adenomas measuring up to 1.2 cm. Kidneys are mildly atrophic. Abdominal aorta is normal in course and caliber without aneurysm. There is no free air. There is no retroperitoneal adenopathy. Pelvis: There are several mildly prominent left upper quadrant small bowel. Urinary bladder is unremarkable. There is no free fluid. Hysterectomy was performed. Appendix is normal. Skeleton: There are no acute osseous findings. No suspicious bony lesions. IMPRESSION: Possible proximal small bowel enteritis. No overt findings of bowel obstruction.
[2020-01-23] MEDS ORDERED: ONDANSETRON ODT 4 MG TAB (6 TAB/ER DISP) PO PRN (04:21)
[2020-01-23] MEDS ORDERED: HYDROCODONE/ACETAMINOPHEN 5-325 MG (6 TAB/ER DISP) PO PRN (04:21)
[2020-01-23 04:45] VITALS: BP 132/99
--- NOTE | 2020-01-23 09:22 | EKG REPORT ---
SEVERITY:- ABNORMAL ECG - SINUS RHYTHM FIRST DEGREE AV BLOCK PROBABLE LEFT ATRIAL ABNORMALITY V1 ,V2,AND V3 LEADS INTERCHANGED. : Confirmed by: Laure La MD 23-Jan-2020 09:22:03
== END 2020-01-23 04:44 | disposition home or self-care (01) ==
LOC: ER 23:10
DX: K52.9 Noninfective gastroenteritis and colitis, unspecified (principal); K21.9 Gastro-esophageal reflux disease without esophagitis; K25.9 Gastric ulcer, unspecified as acute or chronic, without hemorrhage or perforation; R10.12 Left upper quadrant pain; R10.812 Left upper quadrant abdominal tenderness; R11.0 Nausea; I44.0 Atrioventricular block, first degree; E78.00 Pure hypercholesterolemia, unspecified; I10 Essential (primary) hypertension; E89.0 Postprocedural hypothyroidism; Z79.899 Other long term (current) drug therapy; Z79.01 Long term (current) use of anticoagulants; Z86.718 Personal history of other venous thrombosis and embolism; Z86.711 Personal history of pulmonary embolism; Z85.3 Personal history of malignant neoplasm of breast
CPT/HCPCS: 93005; 96376; 99284; 96374; 96375; 36415; 82553; 82550; 83690; 85025; 80053; 84484; 71045; 74177; 93010; A9270 ×3; J2270; J2405

== ENCOUNTER → 2020-09-08 | Outpatient (CLI) | payer MEDICARE, OTHER ==
--- NOTE | 2020-09-08 15:00 | RADIOLOGY REPORT (SQ) ---
EXAM DESCRIPTION: VENOUS UNILATERAL UPPER IMAGES COMPLETED DATE/TIME: 09/08/2020 2:44 pm REASON FOR STUDY: PAIN, SWELLING M79.601 PAIN IN RIGHT ARM M79.604 PAIN IN RIGHT LEG M79.605 PAIN IN LEFT LEG COMPARISON: None. TECHNIQUE: Dynamic and static solomon scale and color images acquired of the right arm venous system. S elected spectral images acquired with additional compression and augmentation maneuvers. The contrala teral subclavian vein and internal jugular vein were also imaged. Images stored on PACS. LIMITATIONS: None. FINDINGS: INTERNAL JUGULAR VEIN: Normal phasicity, compression, augmentation. No visualized echogeni c material on solomon scale. No defects on color images. Comparison opposite side normal. SUBCLAVIAN VEIN: Normal compression, augmentation. No visualized echogenic material on solomon scale. No defects on color images. AXILLARY VEIN: Normal compression, augmentation. No visualized echogenic material on solomon scale. No d efects on color images. BRACHIAL VEIN: Normal compression, augmentation. No visualized echogenic material on solomon scale. No d efects on color images. BASILIC VEIN: Normal compression, augmentation. No visualized echogenic material on solomon scale. No de fects on color images. CEPHALIC VEIN: Normal compression, augmentation. No visualized echogenic material on solomon scale. No d efects on color images. OTHER: No other significant finding. CONTRALATERAL SUBCLAVIAN VEIN AND INTERNAL JUGULAR VEIN: Normal phasicity, compression and augmentation. No visualized echogenic material on solomon scale. No de fects on color images. IMPRESSION: NO EVIDENCE DVT OR SVT IN THE RIGHT ARM. TECHNICAL DOCUMENTATION: JOB ID: [id number] [employer]- All Rights Reserved Reading location - IP/workstation name: [email or web address]
--- NOTE | 2020-09-08 15:13 | RADIOLOGY REPORT (SQ) ---
EXAM DESCRIPTION: VENOUS BILATERAL LOWER IMAGES COMPLETED DATE/TIME: 09/08/2020 2:44 pm REASON FOR STUDY: PAIN, SWELLING M79.601 PAIN IN RIGHT ARM M79.604 PAIN IN RIGHT LEG M79.605 PAIN IN LEFT LEG COMPARISON: 2017 TECHNIQUE: Dynamic and static solomon scale and color images acquired of both lower extremity venous sy stems. Selected spectral images acquired with additional compression and augmentation maneuvers. Imag es stored on PACS. LIMITATIONS: None. FINDINGS: RIGHT LEG COMMON FEMORAL AND FEMORAL: Normal phasicity, compression and augmentation. No visualized echogenic m aterial on solomon scale. No defects on color images. POPLITEAL: Normal compression and augmentation. No visualized echogenic material on solomon scale. No de fects on color images. CALF VESSELS: Normal compression and augmentation. No visualized echogenic material on solomon scale. No defects on color image. GSV AND SSV: Normal compression. No visualized echogenic material on solomon scale. No defects on color images. ANY DEEP VENOUS INSUFFICIENCY: Not evaluated. ANY EVIDENCE OF POPLITEAL CYST: No. OTHER: No other significant finding. LEFT LEG COMMON FEMORAL AND FEMORAL: Normal phasicity, compression and augmentation. No visualized echogenic m aterial on solomon scale. No defects on color images. POPLITEAL: Normal compression and augmentation. No visualized echogenic material on solomon scale. No de fects on color images. CALF VESSELS: Normal compression and augmentation. No visualized echogenic material on solomon scale. No defects on color images. GSV AND SSV: Normal compression. No visualized echogenic material on solomon scale. No defects on color images. ANY DEEP VENOUS INSUFFICIENCY: Not evaluated. ANY EVIDENCE POPLITEAL CYST: No. OTHER: No other significant finding. IMPRESSION: NO EVIDENCE DVT OR SVT IN EITHER LEG. TECHNICAL DOCUMENTATION: JOB ID: [id number] 2010 [employer]- All Rights Reserved Reading location - IP/workstation name: [email or web address]
== END ==
LOC: SP 12:15
PROVIDERS: ATTEND Internal Medicine
DX: M79.601 Pain in right arm (principal); M79.604 Pain in right leg; M79.605 Pain in left leg; R22.31 Localized swelling, mass and lump, right upper limb; R22.41 Localized swelling, mass and lump, right lower limb
CPT/HCPCS: 93970; 93971